=== PATIENT | male | born 1985 | race Caucasian/White ===

== ENCOUNTER 2020-07-10 08:38 | Outpatient (REF) | payer OTHER, SELFPAY ==
[2020-07-10 09:48] LABS: Hematocrit 45.7 % (42-52); Hemoglobin 14.7 g/dl (14.0-18.0); Mean Corpuscular HGB Conc 32.2 g/dl (31.0-36.0); Mean Corpuscular Hemoglobin 25.7 pg (27.0-33.0); Mean Platelet Volume 12.4 fL (9.4-12.4); Platelet Count 234 X10*3/uL (160-400); Red Blood Count 5.71 X10*6/uL (4.60-5.80); Red Cell Distribution Width 14.5 % (11.0-16.0); White Blood Count 5.7 X10*3/uL (4.8-10.8)
[2020-07-10 10:06] LABS: Estimated Average Glucose 103 mg/dL; Hemoglobin A1c % 5.2 %
[2020-07-10 10:10] LABS: Alanine Aminotransferase 21 U/L (0-40); Albumin Level 4.4 g/dL (3.5-5.0); Alkaline Phosphatase 53 U/L (39-117); Anion Gap 12 (12-20); Aspartate Amino Transferase 23 U/L (5-37); Bilirubin Total 0.7 mg/dL (0.0-1.0); Blood Urea Nitrogen 17 mg/dL (9-16); Carbon Dioxide 26 mmol/L (22-29); Chloride 107 mmol/L (96-108); Cholesterol 140 mg/dL; Estimated Glomerular Filt Rate > 60; Glucose Fasting 101 mg/dL (60-99); HDL Cholesterol 42 mg/dL; LDL Cholesterol Calculated 77 mg/dl; Sodium 140 mmol/L (135-145); Total Protein 7.4 g/dL (6.5-8.0); Triglycerides 109 mg/dL
[2020-07-10 10:32] LABS: TSH reflex Free T4 0.57 uIU/mL (0.32-4.0)
== END 2020-07-10 08:39 | disposition home or self-care (01) ==
LOC: HO.LAB 08:38
PROVIDERS: PCP Physician Assistant; Visit Provider Physician Assistant
DX: Z13.220 Encounter for screening for lipoid disorders (principal); Z13.29 Encounter for screening for other suspected endocrine disorder; I10 Essential (primary) hypertension
CPT/HCPCS: 36415; 80053; 80061; 83036; 84443; 85027

== ENCOUNTER → 2020-10-03 13:05 | Outpatient (BNVA) | payer OTHER, SELFPAY | PROVIDERS: PCP Physician Assistant; Referring Provider Physician Assistant; Visit Provider Internal Medicine | DX: R07.9 Chest pain, unspecified (principal); E66.9 Obesity, unspecified; G47.33 Obstructive sleep apnea (adult) (pediatric); Z68.42 Body mass index [BMI] 45.0-49.9, adult; Z87.891 Personal history of nicotine dependence; Z79.899 Other long term (current) drug therapy | CPT/HCPCS: 93005; 99202 ==

== ENCOUNTER → 2020-10-29 15:39 | Outpatient (BNVA) | payer OTHER, SELFPAY | PROVIDERS: PCP Physician Assistant; Visit Provider Internal Medicine | DX: G47.33 Obstructive sleep apnea (adult) (pediatric) (principal); E66.01 Morbid (severe) obesity due to excess calories | CPT/HCPCS: 99202 ==

== ENCOUNTER → 2020-11-14 08:13 | Outpatient (REF) | payer OTHER, SELFPAY ==
--- NOTE | 2020-11-14 08:16 | CA_ITS ---
Transthoracic Echocardiogram Patient (Last, First, Middle): Supa Bello L Gender: Male Date of : 1985 Age: 35 Procedure Date: 11/14/2020 Procedure Type: Transthoracic Echocardiogram Location: OP Height: 180.34 cm Weight: 145.15 kg BSA: 2.58 m2 Heart Rate: bpm BP: 102 / 40 mmHg Sagger Maker: Referring MD: Manav Bhakta MD Symptoms: R07.9 - Chest pain, unspecified Study Quality: Fair ECG Rhythm: Sinus Conclusions: - The left ventricular systolic function is normal. The visually estimated ejection fraction is between 60-65%. - No obvious valvular pathology seen on this study. Findings Left Ventricle Normal left ventricular cavity size. There is normal left ventricular wall thickness. The left ventricular systolic function is normal. The visually estimated ejection fraction is between 60-65%. There is no evidence of regional wall motion abnormalities. Diastolic function is normal for age. Right Ventricle Normal right ventricular cavity size and systolic function. Atria Both atria are normal in size. Aortic Valve There is a normal trileaflet aortic valve. There is no aortic valve stenosis. There is no aortic valve regurgitation. Mitral Valve The mitral valve appears normal. There is trace mitral valve regurgitation. There is no mitral valve stenosis. Pulmonic Valve The pulmonic valve was not well visualized. Tricuspid Valve Normal tricuspid valve structure. There is trace tricuspid valve regurgitation. The pulmonary artery systolic pressure is normal. Great Vessels The aortic annulus, sinuses of valsalva, asc aorta, and aortic arch are normal in size. Venous The inferior vena cava was not well visualized. The inferior vena cava is normal in size and collapses greater than 50% with inspiration. Pericardium/Pleural There is a trivial pericardial effusion. Prior Study Comparison No prior study available for comparison. Recommendations, Care & Conclusions No obvious valvular pathology seen on this study. Measurements 2D Linear Measurements RVIDd: 3.35 RVIDd Index: 1.30 IVSd: 0.96 0.6-0.9/0.6-1.0 cm LVIDd: 5.53 3.9-5.3/4.2-5.9 cm LVIDd Index: 2.14 2.4-3.2/2.2-3.1 cm/m2 LVIDs: 3.16 2.0-3.6 cm LVPWd: 1.23 0.7-1.1 cm Ao Root: 3.10 2.1-3.5 cm LA Diam: 4.10 2.7-3.8/3.0-4.0 cm LAIDs Index: 1.59 1.5-2.3 cm/m2 LV Mass: 302.63 67-162/88-224 g LV Mass Index: 117.30 43-95/49-115 g/m2 LVOT Diam: 2.40 3.0+(-)1.3 cm 2D Systolic Function EF 4C: 57.00 >55% EF 2C: 72.00 >55% Mitral Valve MV Pk E: 0.83 MV PK A: 0.50 MV Decel Time: 202.00 E/A: 1.70 E'Lateral: 9.90 E'Medial: 10.90 E/E' Med: 7.60 E/E' Lat: 8.40 Aortic Valve AoV Pk Shaquille: 1.16 AoV Mn Shaquille: 0.80 AoV VTI: 0.22 AoV Pk Grad: 5.00 Aov Mn Grad: 3.00 ALINE Cont.VTI: 4.21 LVOT LVOT Pk Shaquille: 1.07 LVOT Mn Shaquille: 0.77 LVOT VTI: 0.21 LVOT Pk Grad: 5.00 LVOT Mn Grad: 3.00 LVOT Diam: 2.40 LVOT Area: 4.52 Diastolic Function MV Pk E: 0.83 MV Pk A: 0.50 E/A: 1.70 E'Medial: 10.90 E/E' Med: 7.60 E' Laterial: 9.90 E/E' Lat: 8.40 Right Ventricle TAPSE (mm): 24.00 TVS' Shaquille: 9.00 Tricuspid Valve TR Pk Shaquille: 2.24 TR Pk Grad: 20.00 RA Press: 3.00 RVSP: 23.00 Great Vessels Aorta Ao Root-2D: 3.10 2.0-3.7 cm Ao Asc: 3.10 2.1-3.4 cm Ao Arch: 2.90 Updated in Other Vendor System with Status of Final Manav Bhakta MD electronically signed on 11/15/2020 11:36:05 AM with status of Final
== END ==
LOC: HO.CARD 08:13
PROVIDERS: PCP Internal Medicine; Visit Provider Internal Medicine
DX: R07.9 Chest pain, unspecified (principal); R00.2 Palpitations
CPT/HCPCS: 93306

== ENCOUNTER → 2020-11-21 12:53 | Outpatient (BNVA) | payer OTHER, SELFPAY | PROVIDERS: PCP Physician Assistant; Referring Provider Physician Assistant; Visit Provider Nurse Practitioner Family | DX: R00.2 Palpitations (principal); R07.89 Other chest pain; E66.01 Morbid (severe) obesity due to excess calories; Z68.41 Body mass index [BMI] 40.0-44.9, adult | CPT/HCPCS: 99212 ==

== ENCOUNTER → 2021-01-09 15:18 | Outpatient (BNVA) | payer OTHER, SELFPAY | PROVIDERS: PCP Physician Assistant; Referring Provider Physician Assistant; Visit Provider Nurse Practitioner Family ==

== ENCOUNTER 2021-04-09 12:07 | Outpatient (REF) | payer OTHER, SELFPAY ==
[2021-04-09 13:23] LABS: Binax Internal Control QC Valid; Binax Now Covid-19 Ag Positive (Negative)
== END 2021-04-09 12:08 | disposition home or self-care (01) ==
LOC: HO.LAB 12:07
PROVIDERS: Visit Provider Internal Medicine
DX: Z20.822 Contact with and (suspected) exposure to COVID-19 (principal)
CPT/HCPCS: C9803

== ENCOUNTER 2021-05-08 15:38 | Outpatient (REF) | payer OTHER, SELFPAY ==
--- NOTE | ~2021-05-08 | CT_ITS ---
EXAMINATION: CT HEAD WITHOUT CONTRAST CLINICAL INFORMATION: Migraine COMPARISON: None TECHNIQUE: Contiguous axial imaging was performed from the skull base to vertex without intravenous administration of contrast. This CT examination was performed using dose optimization techniques as appropriate, variously including the following: *Automated exposure control *Adjustment of mA and/or kV according to patient size (this includes techniques or standardized protocols for targeted exams where dose is matched to indication/reason for exam; i.e. extremities or head) *Use of iterative reconstruction technique DLP: 1661 mGy-cm FINDINGS: There is no evidence of acute intracranial hemorrhage or territorial infarction. No abnormal mass effect or midline shift is seen. Angelo to white matter differentiation is well preserved. No extra-axial fluid collections are identified. The ventricles are normal in size. There is no abnormal attenuation within the brain parenchyma. The osseous structures and soft tissues are normal. The mastoid air cells and visualized portions of the paranasal sinuses are well aerated. CT/CT head/brain wo con IMPRESSION: Unremarkable exam.
== END 2021-05-08 15:39 | disposition home or self-care (01) ==
LOC: HO.CT 15:38
PROVIDERS: PCP Physician Assistant; Visit Provider Physician Assistant
DX: G43.009 Migraine without aura, not intractable, without status migrainosus (principal)
CPT/HCPCS: 70450

== ENCOUNTER 2022-05-08 19:09 | Emergency (ER) | payer OTHER, SELFPAY ==
--- NOTE | ~2022-05-08 | CT_ITS ---
EXAMINATION: CT ABDOMEN AND PELVIS WITHOUT CONTRAST CLINICAL INFORMATION: Upper abdominal pain COMPARISON: Abdominal ultrasound 09/25/2016 TECHNIQUE: Multidetector volumetric imaging was performed from the superior aspect of the liver through the pubic symphysis. Sagittal and coronal reformatted images were obtained on the technologist's workstation. This CT examination was performed using dose optimization techniques as appropriate, variously including the following: *Automated exposure control *Adjustment of mA and/or kV according to patient size (this includes techniques or standardized protocols for targeted exams where dose is matched to indication/reason for exam; i.e. extremities or head) *Use of iterative reconstruction technique DLP: 1144 mGy-cm FINDINGS: LUNG BASES: Unremarkable. ABDOMINAL AND PELVIC WALL: Small fat-containing umbilical hernia. LIVER AND BILIARY TREE: Unremarkable. GALLBLADDER: Unremarkable. PANCREAS: Unremarkable. SPLEEN: Unremarkable. ADRENAL GLANDS: Unremarkable. KIDNEYS AND URETERS: Unremarkable. GASTROINTESTINAL TRACT: Few borderline dilated loops of fluid-filled small bowel in the central abdomen measuring up to 2.9 cm without walter transition point. No bowel wall thickening, or intramesenteric loop free fluid. Appendix is surgically absent. VASCULAR: Unremarkable. LYMPH NODES/PERITONEUM: No lymphadenopathy. FREE FLUID: None. BLADDER: Unremarkable. PELVIC VISCERA: Unremarkable. OSSEOUS STRUCTURES: Unremarkable. CT/CT abdomen pelvis wo IV con IMPRESSION: Few borderline dilated loops of fluid-filled small bowel in the central abdomen measuring up to 2.9 cm. Differential considerations could include a developing ileus or enteritis. There is no walter transition point to favor small bowel obstruction however a low-grade small bowel obstruction would be another consideration.
[2022-05-08 19:30] VITALS: BP 124/74; PULSE 86; RESP 20; TEMP 36.7; O2SAT 98; BMI 43.7
--- NOTE | 2022-05-08 19:39 | ED.ABDPAIN ---
HPI - Abdominal Pain General Chief Complaint: Abdominal Pain <NIA Kwok - Last Filed: 05/08/22 19:40> Stated Complaint: upper abd pain <NIA Kwok - Last Filed: 05/08/22 19:40> Time Seen by Provider: 05/08/22 23:57 <NIA Kwok - Last Filed: 05/08/22 19:40> Source: patient <Aneudy Sow MD - Last Filed: 05/09/22 00:36> Mode of arrival: ambulatory <Aneudy Sow MD - Last Filed: 05/09/22 00:36> Limitations: no limitations <Aneudy Sow MD - Last Filed: 05/09/22 00:36> History of Present Illness HPI narrative: Patient history of depression JACEY status post appendectomy comes in with diffuse abdominal discomfort with diarrhea had 3-4 bowel movements earlier today feels nauseated slightly bloated since 09:00 no vomiting no fever or chills pain comes and goes no history of bowel obstructions the past <Aneudy Sow MD - Last Filed: 05/09/22 00:36> Related Data Home Medications: Previous Rx's Medication Instructions Recorded omeprazole 20 mg capsule,delayed 20 mg PO DAILY 30 days #30 caps 08/14/20 release uinmyofjxd-sebouusqeyolh-wkrqswzr 1 tab PO Q6H PRN pain 2 days #8 01/09/21 50 mg-325 mg-40 mg tablet tabs dicyclomine 20 mg tablet 20 mg PO QID PRN abdominal pain 05/09/22 #20 tabs ondansetron 4 mg disintegrating 4 mg PO Q6-8H PRN nausea and 05/09/22 tablet vomiting #7 tabs <NIA Kwok - Last Filed: 05/08/22 19:40> Allergies/Adverse Reactions: Allergies Allergy/AdvReac Type Severity Reaction Status Date / Time No Known Allergies Allergy Verified 05/08/22 19:39 [No Known Allergies*] <NIA Kwok - Last Filed: 05/08/22 19:40> Review of Systems Review of Systems Yes all other systems are reviewed and are negative <Aneudy Sow MD - Last Filed: 05/09/22 00:36> [facility] Past Medical History Medical History: Medical History Morbid obesity <NIA Kwok - Last Filed: 05/08/22 19:40> Surgical History: Surgical History History of appendectomy History of right knee surgery <NIA Kwok - Last Filed: 05/08/22 19:40> Family History Family History: Family History Father Hypertension Mother COPD (chronic obstructive pulmonary disease) Hypertension Asthma Vertigo Brother In good health Sister In good health Son In good health Daughter In good health <NIA Kwok - Last Filed: 05/08/22 19:40> Social History Social History: Social History Housing: Apartment Alcohol intake: never Patient Tobacco Use Status: Former Tobacco user e-Cigarette/Vaping Use: Never Used Second Hand Smoke Exposure: Yes Advance Directives: No Advance Directives Information Provided: Yes service: No Current occupational status: employed Current occupation: [employer] <NIA Kwok - Last Filed: 05/08/22 19:40> Physical Exam ED Vital Signs: Vital Signs - 24 hr 05/08/22 19:30 05/08/22 22:22 05/08/22 23:03 Temperature 98.1 F 97.9 F Pulse Rate 86 79 86 Respiratory Rate 20 20 16 Blood Pressure 124/74 138/85 121/72 Pulse Oximetry 98 99 97 Oxygen Delivery Method Room Air Room Air Room Air 05/09/22 00:32 Temperature 98.1 F Pulse Rate 80 Respiratory Rate 16 Blood Pressure 113/72 Pulse Oximetry 98 Oxygen Delivery Method Room Air BMI result Body Mass Index 43.7 <NIA Kwok - Last Filed: 05/08/22 19:40> Vital Signs - 24 hr 05/08/22 19:30 05/08/22 22:22 05/08/22 23:03 Temperature 98.1 F 97.9 F Pulse Rate 86 79 86 Respiratory Rate 20 20 16 Blood Pressure 124/74 138/85 121/72 Pulse Oximetry 98 99 97 Oxygen Delivery Method Room Air Room Air Room Air 05/09/22 00:32 Temperature 98.1 F Pulse Rate 80 Respiratory Rate 16 Blood Pressure 113/72 Pulse Oximetry 98 Oxygen Delivery Method Room Air BMI result Body Mass Index 43.7 <Aneudy Sow MD - Last Filed: 05/09/22 00:36> Appearance: Alert. Oriented X3. No acute distress. Eyes: No pallor or icterus ENT: Pharynx normal. Oral Mucosa moist Neck: Normal inspection. Neck supple. CVS: Normal heart rate and rhythm. Pulses normal. Respiratory: No respiratory distress. Equal air entry bilateral, no wheezing/rales/rhonchi Abdomen: Soft diffuse abdominal discomfort, slightly bloated. Bowel sounds are present, no mass palpable, no CVA tenderness Skin: Skin warm and dry. Normal skin color. Normal skin turgor. Extremities: No lower extremity edema. No calf tenderness Neuro: Oriented X 3. No motor deficit. <Aneudy Sow MD - Last Filed: 05/09/22 00:36> Course Course Course Narrative: This is an RME: Additional HPI, ROS, PE not included below will be deferred to primary provider. 36-year-old male presents with upper abdominal pain since this morning, patient reports he had some episodes of loose stool, reports nausea however no vomiting. Pain is severe in nature, nonradiating. Patient reports he also has external hemorrhoids. Denies fevers, chills, chest pain, shortness of breath, sick contacts, headache, vision changes, dizziness. Physical exam with upper abdominal tenderness on exam. Normoactive bowel sounds. Plan at this time labs, urine, imaging. <NIA Kwok - Last Filed: 05/08/22 19:40> Medical Decision Making Medical Decision Making MDM Narrative: Patient is slightly dilated bowels but patient is moving his bowels multiple times bowel sounds are present no signs of obstruction clinically discharge patient home on Bentyl and Zofran for likely gastroenteritis <Aneudy Sow MD - Last Filed: 05/09/22 00:36> Differential Diagnosis Diverticulitis/cholecystitis/SBO <Aneudy Sow MD - Last Filed: 05/09/22 00:36> Lab Data [facility] Lab Attestation statement: I reviewed the patient's lab results. <Aneudy Sow MD - Last Filed: 05/09/22 00:36> Result Diagrams: 05/08/22 19:52 05/08/22 19:52 <NIA Kwok - Last Filed: 05/08/22 19:40> Labs: Lab Results 05/08/22 05/08/22 05/08/22 Range/Units 19:52 19:52 19:52 WBC 9.7 (4.8-10.8) X10*3/uL RBC 5.94 H (4.60-5.80) X10*6/uL Hgb 15.3 (14.0-18.0) g/dl Hct 46.4 (42.0-52.0) % MCV 78.1 L (80.0-98.0) fL MCH 25.8 L (27.0-33.0) pg MCHC 33.0 (31.0-36.0) g/dl RDW 14.2 (11.0-16.0) % Plt Count 227 (160-400) X10*3/uL MPV 12.0 (9.4-12.4) fL Immature Gran % (Auto) 0.2 (0.0-0.4) % Neut % (Auto) 82.3 H (45-73) % Lymph % (Auto) 8.3 L (20-40) % Rogers % (Auto) 8.3 (2-11) % Eos % (Auto) 0.5 (0-4) % Baso % (Auto) 0.4 (0-2) % Lymph # (Auto) 0.8 L (1.2-4.9) X10*3/uL Rogers # (Auto) 0.8 (0.1-1.2) X10*3/uL Eos # (Auto) 0.1 (0.0-0.4) X10*3/uL Baso # (Auto) 0.0 (0.0-0.2) X10*3/uL Abs Immat Gran (auto) 0.02 (0.00-0.03) X10*3/uL Absolute Neuts (auto) 8.0 (2.0-8.3) x10*3/uL Absolute Nucleated RBC 0.000 (0.0-0.012) X10*3/uL Nucleated RBC % (auto) 0.0 (0.0-0.2) /100WBC Sodium 143 (135-145) mmol/L Potassium 4.6 (3.3-5.1) mmol/L Chloride 108 (96-108) mmol/L Carbon Dioxide 25 (22-29) mmol/L Anion Gap 15 (12-20) BUN 17 H (9-16) mg/dL Creatinine 1.17 (0.5-1.4) mg/dL Estim Creat Clear Calc 126.1 Estimated GFR > 60 Random Glucose 94 (60-115) mg/dL Calcium 9.1 (8.4-10.2) mg/dL Magnesium 1.6 (1.6-2.6) mg/dL Total Bilirubin 1.1 H (0.0-1.0) mg/dL AST 26 (5-37) U/L ALT 19 (0-40) U/L Alkaline Phosphatase 65 (39-117) U/L Total Protein 7.2 (6.5-8.0) g/dL Albumin 4.4 (3.5-5.0) g/dL Lipase 14 (8-78) U/L Urine Color Urine Appearance Urine pH (5.0-9.0) Ur Specific White Bird (1.005-1.025) Urine Protein (Neg-Trace) mg/dL Urine Glucose (UA) (Negative) mg/dL Urine Ketones (Negative) mg/dL Urine Blood (Negative) Urine Nitrite (Negative) Ur Leukocyte Esterase (Negative) COVID-19 (NICK) (Negative) COVID-19 Clin Com Influenza Type A (MATTIE) Negative (Negative) Influenza Type B (MATTIE) Negative (Negative) Influenza A & B Note See Note 05/08/22 05/08/22 Range/Units 19:52 23:06 WBC (4.8-10.8) X10*3/uL RBC (4.60-5.80) X10*6/uL Hgb (14.0-18.0) g/dl Hct (42.0-52.0) % MCV (80.0-98.0) fL MCH (27.0-33.0) pg MCHC (31.0-36.0) g/dl RDW (11.0-16.0) % Plt Count (160-400) X10*3/uL MPV (9.4-12.4) fL Immature Gran % (Auto) (0.0-0.4) % Neut % (Auto) (45-73) % Lymph % (Auto) (20-40) % Rogers % (Auto) (2-11) % Eos % (Auto) (0-4) % Baso % (Auto) (0-2) % Lymph # (Auto) (1.2-4.9) X10*3/uL Rogers # (Auto) (0.1-1.2) X10*3/uL Eos # (Auto) (0.0-0.4) X10*3/uL Baso # (Auto) (0.0-0.2) X10*3/uL Abs Immat Gran (auto) (0.00-0.03) X10*3/uL Absolute Neuts (auto) (2.0-8.3) x10*3/uL Absolute Nucleated RBC (0.0-0.012) X10*3/uL Nucleated RBC % (auto) (0.0-0.2) /100WBC Sodium (135-145) mmol/L Potassium (3.3-5.1) mmol/L Chloride (96-108) mmol/L Carbon Dioxide (22-29) mmol/L Anion Gap (12-20) BUN (9-16) mg/dL Creatinine (0.5-1.4) mg/dL Estim Creat Clear Calc Estimated GFR Random Glucose (60-115) mg/dL Calcium (8.4-10.2) mg/dL Magnesium (1.6-2.6) mg/dL Total Bilirubin (0.0-1.0) mg/dL AST (5-37) U/L ALT (0-40) U/L Alkaline Phosphatase (39-117) U/L Total Protein (6.5-8.0) g/dL Albumin (3.5-5.0) g/dL Lipase (8-78) U/L Urine Color Yellow Urine Appearance Clear Urine pH 6.0 (5.0-9.0) Ur Specific White Bird 1.025 (1.005-1.025) Urine Protein Negative (Neg-Trace) mg/dL Urine Glucose (UA) Negative (Negative) mg/dL Urine Ketones Trace (Negative) mg/dL Urine Blood Negative (Negative) Urine Nitrite Negative (Negative) Ur Leukocyte Esterase Negative (Negative) COVID-19 (NICK) Negative (Negative) COVID-19 Clin Com See Note Influenza Type A (MATTIE) (Negative) Influenza Type B (MATTIE) (Negative) Influenza A & B Note <NIA Kwok - Last Filed: 05/08/22 19:40> Lab Results 05/08/22 05/08/22 05/08/22 Range/Units 19:52 19:52 19:52 WBC 9.7 (4.8-10.8) X10*3/uL RBC 5.94 H (4.60-5.80) X10*6/uL Hgb 15.3 (14.0-18.0) g/dl Hct 46.4 (42.0-52.0) % MCV 78.1 L (80.0-98.0) fL MCH 25.8 L (27.0-33.0) pg MCHC 33.0 (31.0-36.0) g/dl RDW 14.2 (11.0-16.0) % Plt Count 227 (160-400) X10*3/uL MPV 12.0 (9.4-12.4) fL Immature Gran % (Auto) 0.2 (0.0-0.4) % Neut % (Auto) 82.3 H (45-73) % Lymph % (Auto) 8.3 L (20-40) % Rogers % (Auto) 8.3 (2-11) % Eos % (Auto) 0.5 (0-4) % Baso % (Auto) 0.4 (0-2) % Lymph # (Auto) 0.8 L (1.2-4.9) X10*3/uL Rogers # (Auto) 0.8 (0.1-1.2) X10*3/uL Eos # (Auto) 0.1 (0.0-0.4) X10*3/uL Baso # (Auto) 0.0 (0.0-0.2) X10*3/uL Abs Immat Gran (auto) 0.02 (0.00-0.03) X10*3/uL Absolute Neuts (auto) 8.0 (2.0-8.3) x10*3/uL Absolute Nucleated RBC 0.000 (0.0-0.012) X10*3/uL Nucleated RBC % (auto) 0.0 (0.0-0.2) /100WBC Sodium 143 (135-145) mmol/L Potassium 4.6 (3.3-5.1) mmol/L Chloride 108 (96-108) mmol/L Carbon Dioxide 25 (22-29) mmol/L Anion Gap 15 (12-20) BUN 17 H (9-16) mg/dL Creatinine 1.17 (0.5-1.4) mg/dL Estim Creat Clear Calc 126.1 Estimated GFR > 60 Random Glucose 94 (60-115) mg/dL Calcium 9.1 (8.4-10.2) mg/dL Magnesium 1.6 (1.6-2.6) mg/dL Total Bilirubin 1.1 H (0.0-1.0) mg/dL AST 26 (5-37) U/L ALT 19 (0-40) U/L Alkaline Phosphatase 65 (39-117) U/L Total Protein 7.2 (6.5-8.0) g/dL Albumin 4.4 (3.5-5.0) g/dL Lipase 14 (8-78) U/L Urine Color Urine Appearance Urine pH (5.0-9.0) Ur Specific White Bird (1.005-1.025) Urine Protein (Neg-Trace) mg/dL Urine Glucose (UA) (Negative) mg/dL Urine Ketones (Negative) mg/dL Urine Blood (Negative) Urine Nitrite (Negative) Ur Leukocyte Esterase (Negative) COVID-19 (NICK) (Negative) COVID-19 Clin Com Influenza Type A (MATTIE) Negative (Negative) Influenza Type B (MATTIE) Negative (Negative) Influenza A & B Note See Note 05/08/22 05/08/22 Range/Units 19:52 23:06 WBC (4.8-10.8) X10*3/uL RBC (4.60-5.80) X10*6/uL Hgb (14.0-18.0) g/dl Hct (42.0-52.0) % MCV (80.0-98.0) fL MCH (27.0-33.0) pg MCHC (31.0-36.0) g/dl RDW (11.0-16.0) % Plt Count (160-400) X10*3/uL MPV (9.4-12.4) fL Immature Gran % (Auto) (0.0-0.4) % Neut % (Auto) (45-73) % Lymph % (Auto) (20-40) % Rogers % (Auto) (2-11) % Eos % (Auto) (0-4) % Baso % (Auto) (0-2) % Lymph # (Auto) (1.2-4.9) X10*3/uL Rogers # (Auto) (0.1-1.2) X10*3/uL Eos # (Auto) (0.0-0.4) X10*3/uL Baso # (Auto) (0.0-0.2) X10*3/uL Abs Immat Gran (auto) (0.00-0.03) X10*3/uL Absolute Neuts (auto) (2.0-8.3) x10*3/uL Absolute Nucleated RBC (0.0-0.012) X10*3/uL Nucleated RBC % (auto) (0.0-0.2) /100WBC Sodium (135-145) mmol/L Potassium (3.3-5.1) mmol/L Chloride (96-108) mmol/L Carbon Dioxide (22-29) mmol/L Anion Gap (12-20) BUN (9-16) mg/dL Creatinine (0.5-1.4) mg/dL Estim Creat Clear Calc Estimated GFR Random Glucose (60-115) mg/dL Calcium (8.4-10.2) mg/dL Magnesium (1.6-2.6) mg/dL Total Bilirubin (0.0-1.0) mg/dL AST (5-37) U/L ALT (0-40) U/L Alkaline Phosphatase (39-117) U/L Total Protein (6.5-8.0) g/dL Albumin (3.5-5.0) g/dL Lipase (8-78) U/L Urine Color Yellow Urine Appearance Clear Urine pH 6.0 (5.0-9.0) Ur Specific White Bird 1.025 (1.005-1.025) Urine Protein Negative (Neg-Trace) mg/dL Urine Glucose (UA) Negative (Negative) mg/dL Urine Ketones Trace (Negative) mg/dL Urine Blood Negative (Negative) Urine Nitrite Negative (Negative) Ur Leukocyte Esterase Negative (Negative) COVID-19 (NICK) Negative (Negative) COVID-19 Clin Com See Note Influenza Type A (MATTIE) (Negative) Influenza Type B (MATTIE) (Negative) Influenza A & B Note <Aneudy Sow MD - Last Filed: 05/09/22 00:36> Discharge Plan Discharge Clinical Impression: Gastroenteritis <NIA Kwok - Last Filed: 05/08/22 19:40> Patient Disposition: Home, Self-Care <NIA Kwok - Last Filed: 05/08/22 19:40> Instructions: Gastroenteritis (ED) <NIA Kwok - Last Filed: 05/08/22 19:40> Additional Instructions: Drink plenty of fluids, clear liquids advanced slowly to solids Med for nausea and abdominal discomfort as prescribed Report to ER if distention of the abdomen get worse/vomiting /high fever <NIA Kwok - Last Filed: 05/08/22 19:40> Prescriptions: New dicyclomine 20 mg tablet 20 mg PO QID PRN (Reason: abdominal pain) Qty: 20 0RF ondansetron 4 mg tablet,disintegrating 4 mg PO Q6-8H PRN (Reason: nausea and vomiting) Qty: 7 0RF No Action omeprazole 20 mg capsule,delayed release(DR/EC) 20 mg PO DAILY 30 Days Qty: 30 3RF cavvgcwoda-gsfqgzamgdzgo-qavi 50-325-40 mg tablet 1 tab PO Q6H PRN (Reason: pain) 2 Days Qty: 8 0RF <NIA Kwok - Last Filed: 05/08/22 19:40>
--- OUTSIDE RECORDS SUMMARY | 2022-05-08 19:56 | XMS_ITS | Continuity of Care Document ---
:1985 Author Organization [facility] Address [address] [place] [address]- Care Team Providers Name Role Phone Gallito Poon Primary Care Physician Encounter [facility] Date(s): 09/13/21 - 09/13/[address] [id number]- Encounter Diagnosis Precordial chest pain (Final) - 09/13/21 Precordial chest pain (Final) - 09/13/21 Discharge Disposition: A-D/C Home Attending Physician: Angely Farmer DO Admitting Physician: Angely Farmer DO Referring Physician: Not on Staff, Referring MD Allergies, Adverse Reactions, Alerts No Known Medication Allergies Medications ranitidine 150 mg oral capsule 1 capsule = 150 mg, By Mouth, 2 times a day, # 28 capsule, 0 Refills, Maintenance, 11/05/17 23:10:45EDT, Capsule Start Date: 11/05/17 Stop Date: 11/19/17 Status: Ordered Results Radiology Reports Exam Date Time Procedure Performing Provider Status 09/13/21 6:41 PM Chest 2 Views Frontal and Lat Edison Hatfield (Verified) Notes:(Chest 2 Views Frontal and Lat) Reason For Exam: AnginaRESULT: Chest 2 Views Frontal and Lat Chest 2 Views Frontal and Lat Reason: Angina; Clinical Question(s): CHF COMPARISON: None. FINDINGS: LINES AND TUBES: None. LUNGS AND PLEURA: Clear lungs. Normal pulmonary vascularity. No pleural effusion. No pneumothorax. HEART, MEDIASTINUM AND LORRI: Heart is normal in size. Normal upper mediastinal and hilar contour. BONES AND SOFT TISSUES: No acute abnormality. IMPRESSION: No acute abnormality. WSN: [id number] Ordering Physician: Angely Farmer Dictated By: Julio Pavon MD Dictated Date/Time: 09/13/21 6:41 pm Reviewed By: Julio Pavon MD Signed By: Julio Pavno MD Signed Date/Time: 09/13/21 6:41 pm Transcribed By: RAFAEL Transcribed Date/Time: 09/13/21 6:41 pm Vital Signs Most recent to oldest 1 2 3 [Reference Range]: Oxygen Saturation [94-100 %] 100 % 99 % 99 % (09/13/21 11:04 PM) (09/13/21 9:18 PM) (09/13/21 6: 26 PM) Pulse Rate [55-90 bpm] 67 bpm 64 bpm 78 bpm (09/13/21 11:04 PM) (09/13/21 9:18 PM) (09/13/21 6: 26 PM) Blood Pressure [90-138/55-84 111/65 mm Hg 111/62 mm Hg 112 /65 mm Hg mm Hg] (09/13/21 11:04 PM) (09/13/21 9:18 PM) (09/13/21 6: 26 PM) Respiratory Rate [16-30 16 br/min 18 br/min 18 br/mi n br/min] (09/13/21 11:04 PM) (09/13/21 9:18 PM) (09/13/21 6: 26 PM) Temperature [96.8-100.4 DegF] 97.8 DegF 97.5 DegF 97 .9 DegF (09/13/21 11:04 PM) (09/13/21 9:18 PM) (09/13/21 6: 26 PM) Mode of Delivery (Oxygen) Room air Room air (09/13/21 9:18 PM) (09/13/21 6:26 PM) Blood pressure sites Arm, right (09/13/21 6:26 PM) Temperature Route Oral Oral (09/13/21 9:18 PM) (09/13/21 6:26 PM)
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
[2022-05-08 20:00] LABS: MANUAL DIFF FLAG NO
[2022-05-08 20:01] LABS: Basophils Percent Auto 0.4 % (0-2); Eosinophils Absolute Auto 0.1 X10*3/uL (0.0-0.4); Eosinophils Percent Auto 0.5 % (0-4); Hematocrit 46.4 % (42.0-52.0); Hemoglobin 15.3 g/dl (14.0-18.0); Imm Gran Abs Auto 0.02 X10*3/uL (0.00-0.03); Imm Gran Pct Auto 0.2 % (0.0-0.4); Lymphocytes Absolute Auto 0.8 X10*3/uL (1.2-4.9); Lymphocytes Percent Auto 8.3 % (20-40); Mean Corpuscular Hemoglobin 25.8 pg (27.0-33.0); Mean Corpuscular Volume 78.1 fL (80.0-98.0); Monocytes Absolute Auto 0.8 X10*3/uL (0.1-1.2); Monocytes Percent Auto 8.3 % (2-11); Neutrophils Percent Auto 82.3 % (45-73); Platelet Count 227 X10*3/uL (160-400); Red Blood Count 5.94 X10*6/uL (4.60-5.80); Red Cell Distribution Width 14.2 % (11.0-16.0); White Blood Count 9.7 X10*3/uL (4.8-10.8)
[2022-05-08 20:17] LABS: COVID-19 Test Negative (Negative); IDNOW Serial# 16C4AD1C; IDNOW Serial# BCCEAD1C; Influenza A Negative (Negative); Influenza B2 Negative (Negative)
[2022-05-08 20:40] LABS: Alanine Aminotransferase 19 U/L (0-40); Albumin Level 4.4 g/dL (3.5-5.0); Alkaline Phosphatase 65 U/L (39-117); Anion Gap 15 (12-20); Aspartate Amino Transferase 26 U/L (5-37); Bilirubin Total 1.1 mg/dL (0.0-1.0); Blood Urea Nitrogen 17 mg/dL (9-16); Calcium 9.1 mg/dL (8.4-10.2); Carbon Dioxide 25 mmol/L (22-29); Chloride 108 mmol/L (96-108); Creatinine Clr Calc Pharmacy 126.1; Estimated Glomerular Filt Rate > 60; Glucose Random 94 mg/dL (60-115); Lipase 14 U/L (8-78); Magnesium 1.6 mg/dL (1.6-2.6); Potassium 4.6 mmol/L (3.3-5.1); Sodium 143 mmol/L (135-145); Total Protein 7.2 g/dL (6.5-8.0)
[2022-05-08 22:22] VITALS: BP 138/85; PULSE 79; RESP 20; O2SAT 99
[2022-05-08 23:03] VITALS: BP 121/72; PULSE 86; RESP 16; TEMP 36.6; O2SAT 97
--- NOTE | 2022-05-08 23:04 | MHC.EDTECH ---
this pct assumed care of pt at 2300 ,vitals sign taken and urine sample sent to lab .
[2022-05-08 23:12] LABS: Appearance Urine Clear; Color Urine Yellow; Glucose Urine UA Negative (Negative); Leukocyte Esterase Urine Negative (Negative); Nitrite Urine Negative (Negative); Specific Gravity - Urine 1.025 (1.005-1.025); Urine Blood Negative (Negative); Urine Ketones Trace mg/dL (Negative); Urine Protein Negative (Neg-Trace)
[2022-05-09 00:32] VITALS: BP 113/72; PULSE 80; RESP 16; TEMP 36.7; O2SAT 98
--- NOTE | 2022-05-09 00:38 | MHC.EDTECH ---
patient was given po challenge and tolerated well ,rn aware .
[2022-05-09] MEDS: Dicyclomine HCl 10 MG CAPSULE 20 MG PO (00:41)
[2022-05-09] MEDS: Ondansetron ODT 4 MG TAB.RAPDIS TRANSLINGU (00:41)
== END 2022-05-09 00:46 | disposition home or self-care (01) ==
PROVIDERS: Physician Assistant; Emergency Provider Internal Medicine; PCP Physician Assistant
DX: K52.9 Noninfective gastroenteritis and colitis, unspecified (principal); Z20.822 Contact with and (suspected) exposure to COVID-19
CPT/HCPCS: 74176; 80053; 81003; 83690; 83735; 85025; 87502; 87635; 99283; 99284

== ENCOUNTER 2022-10-27 14:28 | Outpatient (REF) | payer OTHER, SELFPAY ==
[2022-10-29 18:37] LABS: H Pylori Breath Test Positive (Negative)
== END 2022-10-27 14:29 | disposition home or self-care (01) ==
LOC: HO.LNP 14:28
PROVIDERS: PCP Physician Assistant; Visit Provider Nurse Practitioner Family
DX: R13.13 Dysphagia, pharyngeal phase (principal); K21.9 Gastro-esophageal reflux disease without esophagitis
CPT/HCPCS: 83013; 99202

== ENCOUNTER 2022-10-27 14:28 | Outpatient (AMB) | payer OTHER, SELFPAY ==
[2022-10-27 14:34] VITALS: BP 118/58; BMI 44.9
--- NOTE | 2022-10-27 14:34 | A.OFFVIS_ITS ---
Intake Vital Signs 10/27/22 14:34 Height 5 ft 11 in Weight 321 lb 13.998 oz BMI 44.9 BP 118/58 L Blood Pressure Location Lt brachial Position Sitting Intake Visit Reasons: Dysphagia Intake Note: Supa presents in office as a new.patient for Dysphagia PT CC: pt reports having trouble swallowing foods pt denies any other GI Issues Sample Stitcher Required: No Accompanied by: Spouse Allergies No Known Allergies [No Known Allergies*] Allergy (Verified 10/27/22 14:35) HPI Dysphagia HPI Details 37-year old male with past medical history schizoaffective disorder MDD, morbid obesity, JACEY is here today for initial consultation. Patient repo rts that for the last couple years he has been dealing with symptoms acid reflux and lately trouble swallowing. Patient states that he has trouble swallowing liquids and solids. Patient denies any nausea or vomiting. Reports occasional epigastric discomfort with dyspepsia without dysphagia or odynophagia. Patient denies any melena, hematochezia, unintentional weight loss or ribbon like stools. Patient denies any nausea or vomiting. [facility] Medical History Morbid obesity Surgical History History of appendectomy History of right knee surgery Family History Father Hypertension Mother COPD (chronic obstructive pulmonary disease) Hypertension Asthma Vertigo Brother In good health Sister In good health Son In good health Daughter In good health Social History Housing: Apartment Alcohol intake: never Patient Tobacco Use Status: Former Tobacco user Quit Date: 2011 e-Cigarette/Vaping Use: Never Used Second Hand Smoke Exposure: Yes service: No Current occupational status: employed Current occupation: [employer] Cognitive needs: No Hearing needs: No Vision needs: No Review of Systems Const Denies weight gain and Denies weight loss ENT Reports no additional complaints, Reports dysphagia and Denies odynophagia Card Reports no additional complaints Resp Reports no additional complaints GI Denies abdominal pain, Denies belching, Denies melena, Denies bloating, Denies change in bowel habits, Reports dysphagia, Denies excessive flatus, Denies dyspepsia, Reports heartburn, Denies diarrhea, Denies loose stools, Denies nausea, Denies odynophagia and Denies vomiting Reports no additional complaints Musc Reports no additional complaints Neuro Reports no additional complaints Psych Reports no additional complaints Endo Reports no additional complaints Physical Exam Vital Signs: Last Vital Signs BP 118/58 L 10/27/22 14:34 BMI result Body Mass Index 44.9 Const General: healthy appearing, no acute distress and well developed Nutritional Appearance: obese Orientation/consciousness: patient oriented x3 HEENT Head: Yes normal to inspection, Yes normocephalic and Yes atraumatic Face and sinus: Yes normal facial exam Mouth: Normal oral and palatal mucosa present Throat: Yes posterior oropharynx normal, Yes tonsils normal and Yes uvula midline Eyes General: appearance normal, both eyes and all related structures Neck Neck: Yes normal visual inspection, Yes full ROM and Yes trachea midline Thyroid: Thyroid normal Resp Effort & Inspection: normal respiratory effort, able to speak in complete senten derek, no tracheal deviation and symmetric chest movement Auscultation: clear to auscultation bilaterally Cardio Rate: regular rate Heart sounds: S1 normal heart sound present and S2 normal heart sound present GI Inspection: Yes normal to inspection, No distended and Yes obesity Palpation (GI): Soft to palpation, not firm, nontender and No hepatosplenomegaly present Auscultation: normal bowel sounds General: Yes no CVA tenderness Back/Spine/Pelvis Back: no CVA tenderness Skin General skin exam: elasticity normal, turgor normal and dry skin Neuro General: patient oriented x3 Psych Appearance: grossly normal Mental Status: mental status grossly normal Speech and movement: Normal speech and movement present Affect: normal affect Assessment & Plan Assessment & Plan (1) Dysphagia: Code(s): R13.10 - Dysphagia, unspecified Qualifiers: Dysphagia type: pharyngeal phase Qualified Code(s): R13.13 - Dysphagia, pharyngeal phase Plan: Will do H pylori testing and treat empirically positive. Will check transglutaminase to rule out celiac disease. Will start patient on pantoprazole. Patient was previously on omeprazole and has not been helpful. (2) GERD (gastroesophageal reflux disease): Code(s): K21.9 - Gastro-esophageal reflux disease without esophagitis Qualifiers: Esophagitis presence: without esophagitis Qualified Code(s): K21.9 - Gastro-esophageal reflux disease without esophagitis Plan: Start pantoprazole daily. H pylori breath test in the office today. Treatment if positive. Will send patient for upper endoscopy to rule out gastritis, esophagitis, duodenitis, H pylori, celiac, Petersen's. I will see him after the procedure, sooner on as needed basis. Patient is agreeable to this plan and verbalizes understanding of instructions. He was given the opportunity to ask questions and all questions answered. Thank you for allowing me to participate in his care Orders: Orders Transglutaminase IgA 10/27/22 R10.9 - Unspecified abdominal pain Transglutaminase Ab IgG 10/27/22 R10.9 - Unspecified abdominal pain H Pylori Breath Test 10/28/22 Medications: New pantoprazole take one tablet half an hour before breakfast 40 mg PO DAILY 30 tabs 2RF K21.9 - Gastro-esophageal reflux disease without esophagitis Discontinued dicyclomine Discontinued Reason: Patient Completed Course 20 mg PO QID PRN 20 tabs 0RF abdominal pain omeprazole Discontinued Reason: Doctor's Order 20 mg PO DAILY 30 days 30 caps 3RF K21 .9 - Gastro-esophageal reflux disease without esophagitis Coding Level of Care Code New Pt Level 4 (70825) Diagnoses Dysphagia R13.13 Dysphagia type: pharyngeal phase GERD (gastroesophageal reflux disease) K21.9 Esophagitis presence: without esophagitis Time Spent (min) 45 Comment 30 minutes spent with patient additional 15 minutes spent reviewing his records
== END 2022-10-27 15:45 | disposition home or self-care (01) ==
PROVIDERS: PCP Physician Assistant; Visit Provider Nurse Practitioner Family
DX: R13.13 Dysphagia, pharyngeal phase (principal); K21.9 Gastro-esophageal reflux disease without esophagitis
CPT/HCPCS: 99204

== ENCOUNTER 2023-04-29 09:08 | Outpatient (AMB) | payer OTHER, SELFPAY ==
[2023-04-29 09:27] VITALS: BP 118/72; PULSE 78; O2SAT 98; BMI 42.6
--- NOTE | 2023-04-29 09:27 | MHC.PC.OV ---
Vital Signs 04/29/23 09:27 Height 5 ft 11 in Weight 305 lb 8 oz BMI 42.6 BP 118/72 Blood Pressure Location Rt brachial Position Sitting Pulse 78 Pulse Source Pulse Oximeter Pulse Oximetry (%) 98 Oxygen Delivery Method Room Air Intake Visit Reasons: F/U Intake Note: The patient is here for a follow-up appointment after orthopedic surgery with Dr. Camacho. Pt have been experiencing fatigue and dizziness recently. Crane Ladle Person Required: No Accompanied by: Self / Same As Patient Allergies No Known Allergies [No Known Allergies*] Allergy (Verified 04/29/23 10:00) Medication List - Last Reconciled 04/29/23 by Gallito Davis PA-C bismuth subsalicylate 2 tabs PO QID 14 days qnnszjtoeo-ljkxcfxeglhqx-twva 50-325-40 mg 1 tab PO Q6H PRN 2 days diclofenac sodium 50 mg PO DAILY 14 days metronidazole 1,000 mg (2 x 500 mg) PO BID olanzapine 5 - 10 mg PO BEDTIME ondansetron 4 mg PO Q6-8H PRN 7 days pantoprazole 40 mg PO DAILY propranolol 20 - 40 mg PO DAILY PRN tetracycline 1,000 mg (2 x 500 mg) PO Q12H triamcinolone acetonide 0.5% 1 appl topical DAILY 15 days Tobacco use date assessed: 04/29/23 Dental Screening Dental Screen Date: 04/29/23 Did you have a dental visit in the last 12 months?: Yes Did you have a dental problem in the last 6 months where you did not have access to dental care?: No Was dental information given to patient?: Patient has dentist HPI F/U HPI Details Patient is a 37-year-old here today for a follow-up visit. Recently underwent a left biceps tendon repair at [facility] then went fairly well. Still has pins and needles over his face. Unclear if this is a side effect of anesthesia or his anxiety. He has been taking only Tylenol for his pain relief as he reports having high pain tolerance. Also report since surgery having right lateral thigh numbness. He does have history of lumbar spine issues thus will send for x-ray of his lumbar spine. He is awaiting therapy for his left arm. He has upcoming appointment with his orthopedic surgeon. We have filled out [employer] paperwork for his job. He is awaiting [employer] paperwork for his so that she can take time off to help him with his activities of daily living. [facility] Medical History (Updated 04/29/23 @ 10:08 by Gallito Davis PA-C) Schizoaffective disorder PTSD (post-traumatic stress disorder) JACEY (obstructive sleep apnea) MDD (major depressive disorder) SALINAS (generalized anxiety disorder) GERD (gastroesophageal reflux disease) Morbid obesity Surgical History (Updated 04/29/23 @ 10:11 by Gallito Davis PA-C) History of right knee surgery History of appendectomy Family History Father Hypertension Mother COPD (chronic obstructive pulmonary disease) Hypertension Asthma Vertigo Brother In good health Sister In good health Son In good health Daughter In good health Social History Housing: Apartment Alcohol intake: never Patient Tobacco Use Status: Former Tobacco user Quit Date: 2011 e-Cigarette/Vaping Use: Never Used Second Hand Smoke Exposure: Yes service: No Current occupational status: employed Current occupation: [employer] Cognitive needs: No Hearing needs: No Vision needs: No Questionnaire PHQ-9 Over the last 2 weeks, how often have you been bothered by any of the following problems? 1. Little interest or pleasure in doing things: more than half the days 2. Feeling down, depressed, or hopeless: nearly every day 3. Trouble falling or staying asleep, or sleeping too much: nearly every day 4. Feeling tired or having little energy: nearly every day 5. Poor appetite or overeating: more than half the days 6. Feeling bad about yourself - or that you are a failure or have let yourself or your family down: several days 7. Trouble concentrating on things, such as reading the newspaper or watching television: more than half the days 8. Moving or speaking so slowly that other people could have noticed. Or the opposite - being so fidgety or restless that you have been moving around a lot more than usual: several days 9. Thoughts that you would be better off or of hurting yourself in some way: several days Total score: 18 [id number] - PHQ-9 Billing: Yes Source: Developed by Drs. Eduard L. Charlie, Samy Chávez and colleagues, with an educational jac from [employer]. Thrive Questionnaire Date Thrive assessed: 04/29/23 I am a: Patient What is your living situation today?: I have a steady place to live Within the past 12 months, did the food you bought not last and you didn't have the money to get more?: Never true Within the past 12 months, did you worry whether your food would run out before you got money to buy more?: Never true Do you have trouble paying for medicines?: No Do you have trouble getting transportation to medical appointments?: No Do you have trouble paying your heating and electricity bill?: No Do you have trouble taking care of your child, family member or friend?: No Do you have trouble with day-to-day activities such as bathing, preparing meals, shopping, managing finances, etc.?: No Are you currently unemployed and looking for a job?: No Are you interested in more education?: No Please select the resources that you would like help with: None Currently or been in a relationship where the following occur: no concerns reported THRIVE Score: 0 AUDIT C Alcohol Use Questionnaire (AUDIT-C) 1. How often do you have a drink containing alcohol?: Never 3. How often do you have six or more drinks on one occasion?: Never Total Score: 0 SALINAS-7 AMB Questionnaire SALINAS-7 Date SALINAS - 7 assessed: 04/29/23 Feeling nervous, anxious, or on edge: 3 = Nearly every day Not being able to stop or control worryin = Nearly every day Worrying too much about different things: 3 = Nearly every day Trouble relaxin = Nearly every day Being so restless that it is hard to sit still: 2 = More than half the days Becoming easily annoyed or irritable: 3 = Nearly every day Feeling afraid as if something awful might happen: 3 = Nearly every day Total SALINAS-7 score (0-4 normal; 5-9 mild; 10-14 moderate; 15-21 severe): 20 Source: Developed by Drs. Eduard Guerra, Samy Chávez and colleagues, with an educational jac from [employer]. SALINAS-7 Assessment Billing SALINAS-7 Assessment Tool: SALINAS-7 Assessment 42637 Review of Systems Const Denies headache(s) Eyes Denies loss of vision ENT Denies vertigo, Denies dizziness, Denies headache(s) and Denies sore throat Card Denies chest pain, Denies leg edema and Denies lightheadedness Resp Denies cough, Denies hemoptysis and Denies wheezing GI Denies abdominal pain, Denies melena, Denies constipation, Denies diarrhea and Denies vomiting Denies dysuria, Denies urinary frequency and Denies urinary urgency Musc Denies arthralgias, Denies joint swelling, Denies numbness and Denies tingling Neuro Denies Abnormal speech present, Denies behavioral changes, Denies vertigo, Denies dizziness, Denies headache(s), Denies loss of vision, Denies memory loss, Denies numbness and Denies tingling Psych Denies anxiety, Denies behavioral changes, Denies depression, Denies memory loss and Denies panic attacks Brent/Lymph Denies easy bleeding and Denies easy bruising Aller/Immun Denies wheezing Physical exam (Primary Care) Vital Signs: Last Vital Signs Pulse 78 04/29/23 09:27 BP 118/72 04/29/23 09:27 Pulse Ox 98 04/29/23 09:27 Oxygen Delivery Method Room Air 04/29/23 09:27 BMI result Body Mass Index 42.6 BMI Assessment/Plan discussion: High Tobacco/Smoking Status: Tobacco use Status Tobacco use date assessed 04/29/23 04/29/23 09:38 Patient Tobacco Use Status Former Tobacco user 04/29/23 09:29 e-Cigarette/Vaping Use Never Used 04/29/23 09:29 PHQ-9: PHQ-9 Score PHQ-9: Total score 18 04/29/23 10:09 Thrive Assessment: Date of Thrive Assessment Date Thrive assessed 04/29/23 04/29/23 09:36 Currently or been in a relationship where the following occur: no concerns reported Const General: healthy appearing, no acute distress, alert and awake Nutritional Appearance: well nourished Orientation/consciousness: oriented to person, oriented to place and oriented to time HENMT Ears: TM's normal bilaterally General nose exam: Normal nasal mucous membranes and turbinates present Eyes Conjunctivae: conjunctivae normal Sclerae: sclerae normal Pupils: Equal, round and reactive pupils present Neck Neck: Yes no lymphadenopathy and Yes no JVD Thyroid: Thyroid normal Carotids: no bruits Resp Effort & Inspection: normal respiratory effort and not tachypneic Auscultation: no crackles, no rales, no rhonchi and no wheezes Cardio Rate: regular rate Rhythm: regular rhythm Heart sounds: no murmurs and normal S1 and S2 GI Palpation (GI): Soft to palpation, nontender, no hepatomegaly and no splenomegaly Auscultation: normal bowel sounds Skin General skin exam: no rashes or lesions noted and dry skin Neuro General: oriented to person, oriented to place and oriented to time Cranial nerves: Yes Equal, round and reactive pupils present Speech: No Abnormal speech present Gait exam (Neuro): Normal gait present Motor exam (neuro): no tremor noted Extrem Other: LEFT UPPER EXTREMITY IN SLING. Right upper extremity: full ROM Right lower extremity: full ROM; no edema Left lower extremity: full ROM; no edema Psych Mental Status: mental status grossly normal Speech and movement: Normal speech and movement present Affect: normal affect Attitude: cooperative Thought process: Normal thought process present Assessment and Plan Assessment & Plan (1) Tear of left biceps muscle: Code(s): S46.212A - Strain of muscle, fascia and tendon of other parts of biceps, left arm, initial encounter Qualifiers: Encounter type: initial encounter Qualified Code(s): S46.212A - Strain of muscle, fascia and tendon of other parts of biceps, left arm, initial encounter Plan: IS STATUS POST BICEPS TENDON TEAR REPAIR. HAS UPCOMING APPOINTMENT WITH ORTHOPEDICS. Of note has odd neurological symptoms since surgery including numbness and tingling in face and right lateral thigh numbness.? Side effect of anesthesia Will get some baseline testing including B12, magnesium (2) Lumbar disc disease with radiculopathy: Code(s): M51.16 - Intervertebral disc disorders with radiculopathy, lumbar region Plan: Since surgery he has been noting right lower extremity numbness and tingling over his thigh. He does have lower lumbar spine (3) Right leg numbness: Code(s): R20.0 - Anesthesia of skin Plan: As above signs symptoms concerning for disc herniation and lumbar spine. Orders: Orders Vitamin B12 and Folate Today E53.8 - Deficiency of other specified B group vitamins, R20.0 - Anesthesia of skin, Z98.890 - Other specified postprocedural states XR lumbar spine 2-3V Today M51.16 - Intervertebral disc disorders with radiculopathy, lumbar region CT NG by PCR Today M51.16 - Intervertebral disc disorders with radiculopathy, lumbar region, Z20.2 - Contact with and (suspected) exposure to infections with a predominantly sexual mode of transmission Basic Metabolic Panel Today R20.0 - Anesthesia of skin, Z98.890 - Other specified postprocedural states Complete Blood Count no Diff Today R20.0 - Anesthesia of skin, Z98.890 - Other specified postprocedural states Magnesium Today R20.0 - Anesthesia of skin, Z98.890 - Other specified postprocedural states Syphilis Screen Today M51.16 - Intervertebral disc disorders with radiculopathy, lumbar region, Z11.3 - Encounter for screening for infections with a predominantly sexual mode of transmission HIV Ab/Ag Today M51.16 - Intervertebral disc disorders with radiculopathy, lumbar region, Z11.3 - Encounter for screening for infections with a predominantly sexual mode of transmission Coding Level of Care Code Est Pt Level 4 (80994) Diagnoses Tear of left biceps muscle, initial encounter S46.212A Encounter type: initial encounter Lumbar disc disease with radiculopathy M51.16 Right leg numbness R20.0 Additional Codes SALINAS-7 Assessment Billing - SALINAS-7 Assessment Tool: SALINAS-7 Assessment [id number] ([id number])
== END 2023-04-29 10:33 | disposition home or self-care (01) ==
PROVIDERS: PCP Physician Assistant; Visit Provider Physician Assistant
DX: S46.212A Strain of muscle, fascia and tendon of other parts of biceps, left arm, initial encounter (principal); M51.16 Intervertebral disc disorders with radiculopathy, lumbar region; R20.0 Anesthesia of skin
CPT/HCPCS: 99214

== ENCOUNTER 2023-05-05 14:02 | Outpatient (REF) | payer OTHER, SELFPAY ==
--- NOTE | ~2023-05-05 | XR_ITS ---
EXAMINATION: XR LUMBOSACRAL SPINE CLINICAL INFORMATION: Intervertebral discs disorders with radiculopathy. COMPARISON: None available. TECHNIQUE: AP and lateral views of the lumbar spine and lateral view of the lumbosacral junction. FINDINGS: Vertebral body heights are normal. There is a slight lumbar levoscoliosis. There is a transitional lumbar vertebra, which is designated L6. The lumbar disc spaces are well-maintained. The remaining disc spaces are well-maintained. No acute fracture or spondylolysis. There is mild anterior spondylosis at L4-L5. The posterior elements are intact. The paravertebral soft tissues are unremarkable. XR/XR lumbar spine 2-3V IMPRESSION: 1. There is mild degenerative disc disease at L4-L5. 2. The lumbar disc spaces are well-maintained. 3. No acute fracture or spondylolisthesis. 4. Transitional lumbar anatomy is noted. 5. There is a slight lumbar levoscoliosis.
[2023-05-05 15:26] LABS: Hematocrit 45.1 % (42.0-52.0); Hemoglobin 14.7 g/dl (14.0-18.0); Mean Corpuscular HGB Conc 32.6 g/dl (31.0-36.0); Mean Corpuscular Hemoglobin 25.6 pg (27.0-33.0); Mean Corpuscular Volume 78.6 fL (80.0-98.0); Mean Platelet Volume 12.5 fL (9.4-12.4); Platelet Count 259 X10*3/uL (160-400); Red Blood Count 5.74 X10*6/uL (4.60-5.80); Red Cell Distribution Width 14.4 % (11.0-16.0); White Blood Count 7.1 X10*3/uL (4.8-10.8)
[2023-05-05 15:58] LABS: Anion Gap 11 (12-20); Blood Urea Nitrogen 13 mg/dL (9-16); Calcium 9.5 mg/dL (8.4-10.2); Carbon Dioxide 28 mmol/L (22-29); Chloride 108 mmol/L (96-108); Estimated Glomerular Filt Rate > 60; Glucose Random 73 mg/dL (60-115); Magnesium 1.9 mg/dL (1.6-2.6); Potassium 4.1 mmol/L (3.3-5.1); Sodium 143 mmol/L (135-145)
[2023-05-05 16:32] LABS: Vitamin B12 379 pg/mL (200-900)
[2023-05-05 17:27] LABS: CT PCR NOT DETECTED (Not Detect.); NG PCR NOT DETECTED (Not Detect.)
[2023-05-06 05:01] LABS: Syphilis Screen Nonreactive (Nonreactive)
[2023-05-06 07:40] LABS: HIV AB/AG Nonreactive (Nonreactive); HIV Num 1 0.06 S/CO (0.00-0.99)
== END 2023-05-05 14:03 | disposition home or self-care (01) ==
LOC: HO.LAB 14:02
PROVIDERS: PCP Physician Assistant; Visit Provider Physician Assistant
DX: R20.0 Anesthesia of skin (principal); M51.16 Intervertebral disc disorders with radiculopathy, lumbar region; E53.8 Deficiency of other specified B group vitamins; Z11.3 Encounter for screening for infections with a predominantly sexual mode of transmission; Z20.2 Contact with and (suspected) exposure to infections with a predominantly sexual mode of transmission; Z98.890 Other specified postprocedural states
CPT/HCPCS: 0353U; 72100; 80048; 82607; 82746; 83735; 85027; 86780; 87389

== ENCOUNTER 2023-12-07 15:33 | Outpatient (AMB) | payer OTHER, SELFPAY ==
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
--- NOTE | 2023-12-07 15:36 | A.OFFPC_ITS ---
Intake Visit Reasons: [facility] F/U for back pain/PT order Armhole Raiser Lockstitch Required: No Allergies No Known Allergies [No Known Allergies*] Allergy (Verified 12/07/23 15:42) Medication List - Last Reconciled 12/07/23 by Gallito Davis PA-C bismuth subsalicylate 2 tabs PO QID 14 days kxqevrkgmf-rxkrscglodxta-rjza 50-325-40 mg 1 tab PO Q6H PRN 2 days diclofenac sodium 50 mg PO DAILY 14 days metronidazole 1,000 mg (2 x 500 mg) PO BID olanzapine 5 - 10 mg PO BEDTIME ondansetron 4 mg PO Q6-8H PRN 7 days pantoprazole 40 mg PO DAILY propranolol 20 - 40 mg PO DAILY PRN tetracycline 1,000 mg (2 x 500 mg) PO Q12H triamcinolone acetonide 0.5% 1 appl topical DAILY 15 days Tobacco use date assessed: 04/29/23 Dental Screening Dental Screen Date: 04/29/23 HPI [facility] F/U for back pain/PT order HPI Details Patient is a 38-year-old male being evaluated today via telephone only. Patient was seen at [facility] for acute lower back pain with increase pain numbness in his right foot and buttocks. He has had these symptoms in the past before though to this extent. He is concerned about his right lower extremity numbness. He was evaluated at the ER though x-rays deferred due to no for flag symptoms. He was discharged home with lidocaine patches, naproxen and cyclobenzaprine. [facility] Medical History Schizoaffective disorder PTSD (post-traumatic stress disorder) JACEY (obstructive sleep apnea) MDD (major depressive disorder) SALINAS (generalized anxiety disorder) GERD (gastroesophageal reflux disease) Morbid obesity Surgical History History of right knee surgery History of appendectomy Family History Father Hypertension Mother COPD (chronic obstructive pulmonary disease) Hypertension Asthma Vertigo Brother In good health Sister In good health Son In good health Daughter In good health Social History Housing: Apartment Alcohol intake: never Patient Tobacco Use Status: Former Tobacco user e-Cigarette/Vaping Use: Never Used Second Hand Smoke Exposure: Yes service: No Current occupational status: employed Current occupation: [employer] Cognitive needs: No Hearing needs: No Vision needs: No Questionnaire Thrive Questionnaire Date Thrive assessed: 04/29/23 SALINAS-7 AMB Questionnaire SALINAS-7 Date SALINAS - 7 assessed: 04/29/23 Source: Developed by Drs. Eduard Guerra, Sari Moise, Samy Washington and colleagues, with an educational jac from [employer]. Review of Systems Const Denies headache(s) Eyes Denies loss of vision ENT Denies vertigo, Denies dizziness, Denies headache(s) and Denies sore throat Card Denies chest pain, Denies leg edema and Denies lightheadedness Resp Denies cough, Denies hemoptysis and Denies wheezing GI Denies abdominal pain, Denies melena, Denies constipation, Denies diarrhea and Denies vomiting Denies dysuria, Denies urinary frequency and Denies urinary urgency Musc Denies arthralgias, Denies joint swelling, Denies numbness and Denies tingling Neuro Denies behavioral changes, Denies vertigo, Denies dizziness, Denies headache(s), Denies loss of vision, Denies memory loss, Denies numbness and Denies tingling Psych Denies anxiety, Denies behavioral changes, Denies depression, Denies memory loss and Denies panic attacks Brent/Lymph Denies easy bleeding and Denies easy bruising Aller/Immun Denies wheezing Physical exam (Primary Care) Tobacco/Smoking Status: Tobacco use Status Tobacco use date assessed 04/29/23 12/07/23 15:36 Patient Tobacco Use Status Former Tobacco user 12/07/23 15:36 e-Cigarette/Vaping Use Never Used 12/07/23 15:36 Thrive Assessment: Date of Thrive Assessment Date Thrive assessed 04/29/23 12/07/23 15:36 Telehealth Telehealth Telehealth Platform: Telephone Location of provider rendering services: practice address Location of patient: address on file Patient Identification confirmed using: Name, : Yes Telehealth method: voice only Patient verbally consented to treatment: Yes Patient verbally consented to billing insurance company: Yes Patient informed of any privacy concerns related to visit: Yes Minutes spent on Phone/Video with Pt.: 11 Assessment and Plan Assessment & Plan (1) Lumbar disc disease with radiculopathy: Code(s): M51.16 - Intervertebral disc disorders with radiculopathy, lumbar region Plan: Patient reports signs and symptoms of right lower extremity numbness and tingling in low back pain. Signs and symptoms consistent with a lumbar radiculopathy which likely get better with formal physical therapy. Will give him prednisone taper for inflammation around the nerve. Does have access to cyclobenzaprine and naproxen. Orders: Orders PT Evaluation and Treatment Today M51.16 - Intervertebral disc disorders with radiculopathy, lumbar region, M51.9 - Unspecified thoracic, thoracolumbar and lumbosacral intervertebral disc disorder Medications: New prednisone take 3 tabs x 3 days , take 2 tabs x 3 days , take 1 tab x 3 days 10 mg PO DIRECTED 18 tabs 0RF 9 days M51.16 - Intervertebral disc disorders with radiculopathy, lumbar region Coding Level of Care Code Tele Est Pt Level 4 (15602) Diagnoses Lumbar disc disease with radiculopathy M51.16
== END 2023-12-07 16:43 | disposition home or self-care (01) ==
LOC: HO.HMGH 15:33
PROVIDERS: PCP Physician Assistant; Visit Provider Physician Assistant
DX: M51.16 Intervertebral disc disorders with radiculopathy, lumbar region (principal)
CPT/HCPCS: 99214

== ENCOUNTER 2024-01-29 11:14 | Outpatient (REF) | payer OTHER, SELFPAY ==
--- NOTE | ~2024-01-29 | XR_ITS ---
EXAMINATION: XR ABDOMEN KUB CLINICAL INDICATION: Frequency of micturition. COMPARISON: Most recent CT abdomen/pelvis dated 05/08/2022. TECHNIQUE: AP views of the abdomen. FINDINGS: The bowel gas pattern is normal with no evidence of ileus or obstruction. No unusual soft tissue calcifications are noted. The bones are unremarkable. XR/XR KUB IMPRESSION: Unremarkable examination. Electronically signed by: Scottie Correia MD 01/29/2024 03:57 PM EDT
[2024-01-29 12:30] LABS: Hemoglobin 14.5 g/dl (14.0-18.0); Mean Platelet Volume 12.4 fL (9.4-12.4); Platelet Count 234 X10*3/uL (160-400); Red Blood Count 5.57 X10*6/uL (4.60-5.80); Red Cell Distribution Width 14.6 % (11.0-16.0); White Blood Count 5.5 X10*3/uL (4.8-10.8)
[2024-01-29 12:35] LABS: Appearance Urine Clear; Color Urine Yellow; Glucose Urine UA Negative (Negative); Leukocyte Esterase Urine Negative (Negative); Nitrite Urine Negative (Negative); PH 6.5 (5.0-9.0); Specific Gravity - Urine >= 1.030 (1.005-1.025); Urine Blood Negative (Negative); Urine Ketones Negative (Negative); Urine Protein Negative (Neg-Trace)
[2024-01-29 13:24] LABS: Anion Gap 10 (12-20); Blood Urea Nitrogen 15 mg/dL (9-16); Calcium 9.5 mg/dL (8.4-10.2); Carbon Dioxide 26 mmol/L (22-29); Chloride 110 mmol/L (96-108); Estimated Glomerular Filt Rate > 60; Glucose Random 97 mg/dL (60-115); Sodium 142 mmol/L (135-145)
[2024-02-03 17:38] LABS: Aspergillus Antigen Not Detected (Not Detected); Index Value 0.04 (<0.50)
== END 2024-01-29 11:15 | disposition home or self-care (01) ==
LOC: HO.XRAY 11:14
PROVIDERS: PCP Physician Assistant; Visit Provider Physician Assistant
DX: R05.9 Cough, unspecified (principal); R30.0 Dysuria; R35.0 Frequency of micturition; K21.9 Gastro-esophageal reflux disease without esophagitis
CPT/HCPCS: 36415; 74018; 80048; 81003; 85027; 87305

== ENCOUNTER 2024-02-07 14:35 | Outpatient (REF) | payer OTHER, SELFPAY ==
--- NOTE | ~2024-02-07 | MR_ITS ---
EXAMINATION: MR LUMBAR SPINE WITHOUT CONTRAST CLINICAL INFORMATION: Worsening low back pain with lower extremity weakness and numbness COMPARISON: Lumbar spine x-ray on 05/05/2023 TECHNIQUE: MRI of the lumbar spine was obtained using routine sequences without contrast. Patient was unable to complete the full examination due to anxiety. FINDINGS: There is lumbarization of S1. The visualized lumbar vertebrae are intact with normal alignment. No focal bone lesion with abnormal signal can be seen. Evaluation of the intervertebral discs show: T12/L1: Intervertebral disc height is normal, with normal T2 signal. No focal disc herniation is seen. Bilateral T12/L1 neuroforamina are patent. Bilateral apophyseal joints are intact with normal alignment. L-1/L-2: Intervertebral disc height is normal, with normal T2 signal. No focal disc herniation is seen. Bilateral L1-L2 neuroforamina are patent. Bilateral apophyseal joints are intact with normal alignment. L2/L3: Intervertebral disc height is normal, with normal T2 signal. No focal disc herniation is seen. Bilateral L2-L3 neuroforamina are patent. Bilateral apophyseal joints are intact with normal alignment. L3/L4: Intervertebral disc height is normal, with normal T2 signal. No focal disc herniation is seen. Bilateral L3-L4 neuroforamina are patent. Bilateral apophyseal joints are intact with normal alignment. L4/L5: Intervertebral disc height is normal, with mild loss of T2 signal. Mild right posterior lateral disc protrusion is seen. There is resulting mild asymmetric right L4-L5 neural foraminal stenosis. Bilateral apophyseal joints are intact with normal alignment. L5/S1: Intervertebral disc height is normal, with moderate loss of T2 signal. Moderate midline posterior disc protrusion is seen. Bilateral L5-S1 neuroforamina are mildly stenosed, more severe on the left side. There is moderate spinal stenosis due to impingement by hypertrophic ligamentum flavum. Bilateral apophyseal joints are intact with normal alignment. Conus medullaris is seen normally at L1 level. MR/MR lumbar spine wo con IMPRESSION: 1. Lumbarization of S1. 2. Mild right posterior lateral disc protrusion at L4-L5 with resulting mild asymmetric right L4-L5 neural foraminal stenosis. 3. Moderate midline posterior disc protrusion at L5-S1 and hypertrophic ligamentum flavum with resulting moderate spinal stenosis and mild bilateral L5-S1 neural foraminal stenosis, more severe on the left side. 4. Incomplete examination due to patient's anxiety. Electronically signed by: Blayne Zambrano MD 02/08/2024 10:38 AM [facility]OGER DELAROSA
== END 2024-02-07 14:36 | disposition home or self-care (01) ==
LOC: HO.MRI 14:35
PROVIDERS: PCP Physician Assistant; Visit Provider Physician Assistant
DX: M51.16 Intervertebral disc disorders with radiculopathy, lumbar region (principal)
CPT/HCPCS: 72148

== ENCOUNTER 2024-02-15 10:10 | Outpatient (AMB) | payer OTHER, SELFPAY ==
--- NOTE | 2024-02-15 10:16 | A.SPINEOV_ITS ---
Intake Visit Reasons: STAT Ref Back pain Intake Note: Mr. Bello is here today c/o low back pain that radiate the legs with right leg numbness. Nail Technician Required: No Allergies No Known Allergies [No Known Allergies*] Allergy (Verified 02/15/24 10:17) Assessment & Plan Assessment & Plan (1) Lumbar radiculopathy: Code(s): M54.16 - Radiculopathy, lumbar region Category: Medical Plan Dear NIA Davis, Thank you for referring Mr. Bello to our office today. He is a 38 year old male who comes in today with a chief complaint of low back pain and some shooting pain into his right lower extremity. He states that his back pain is the ?worst other than he has in his by far more severe than his leg pain he says it is left-sided low back pain. In regards to his leg pain he states that it shoots down the lateral aspect of his right leg into his right foot. He associates some numbness with the pain. He reports that his pain is worse with lying flat and better with standing or sitting. 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 He was subsequently evaluated at the emergency department and prescribed muscle relaxers and a course of prednisone. Unfortunately he never took the prednisone & has only taken the muscle relaxers. He has not attempted physical therapy or cortisone injections as of yet. He is still able to walk around his home and navigate stairs without significant issue. PMH: Tendinitis of left elbow, GERD, major depressive disorder, acute episode of schizophrenia in remission, morbid obesity, syncopal episodes, heart palpitations, tinea pedis, migraines. Social hx: Patient does not smoke, reports no substance use. Medications: Bismuth, Excedrin, cyclobenzaprine, diclofenac, gabapentin, olanzapine, ondansetron, pantoprazole, propranolol, triamcinolone. Allergies: NKDA. Physical exam: The patient has 5/5 strength in his upper and lower extremities. He does elicit pain when attempting bilateral iliopsoas testing, worse on the left. He walks without an antalgic gait. He does need to brace himself in order to rise from a seated position. (+) left-sided straight leg raise, (-) right-sided straight leg raise. Imaging review: MRI of the lumbar spine completed here at [facility] shows some mild-moderate right-sided foraminal stenosis at L4-5, and a posterior disc bulge at L5-S1 causing moderate bilateral foraminal stenosis at this level. Unfortunately only the axial and very limited sagittal views could be reddened due to lack of patient compliance with MRI. There is no T2 sagittal view. Impression: Supa is a pleasant 38-year-old male who comes in today with a chief complaint of low back pain and shooting pain into his right lower extremity. He states that his back pain is by far worst in his leg pain. He feels his back pain in his left-sided near the bottom of his spine. He denies any shooting pains down his left lower extremity. He denies any numbness/tingling down his left lower extremity. His MRI is overall difficult to assess as there is no T2 sagittal view due to lack of patient compliance with the imaging. It does appear that he has quite a bit of impingement at L5-S1, likely secondary to an acute disc bulge happened as a result of the inciting incident listed above. I would like to send him for a course of physical therapy and encouraged him to take the steroid medication that was already prescribed for him. After he completes 6-8 weeks of physical therapy if he is still having significant pain he was encouraged to see us again for follow-up. We discussed how the majority of disc protrusions can resorb. Thank you for allowing us to care for your patient. The total time spent with this visit with this patient was 45 minutes reviewing history, physical exam, MRI imaging review, and implementation of treatment plan or further diagnostic testing Gabriel Oneal MD,PhD [facility] Coding Level of Care Code New Pt Level 4 (72008) Diagnoses Lumbar radiculopathy M54.16
== END 2024-02-15 10:38 | disposition home or self-care (01) ==
PROVIDERS: PCP Physician Assistant; Referring Provider Physician Assistant; Visit Provider Physician Assistant
DX: M54.16 Radiculopathy, lumbar region (principal)
CPT/HCPCS: 99204

== ENCOUNTER → 2024-02-15 10:10 | Outpatient (BNVA) | payer OTHER, SELFPAY | PROVIDERS: PCP Physician Assistant; Referring Provider Physician Assistant; Visit Provider Physician Assistant | DX: M54.16 Radiculopathy, lumbar region (principal) | CPT/HCPCS: 99202 ==

== ENCOUNTER 2024-04-12 13:06 | Outpatient (AMB) | payer OTHER, SELFPAY ==
--- NOTE | 2024-04-12 13:19 | MHC.PC.OV ---
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 Accompanied by: Son Allergies No Known Allergies [No Known Allergies*] Allergy (Verified 04/12/24 13:40) Medication List - Last Reconciled 04/12/24 by Gallito Davis PA-C olanzapine 5 - 10 mg PO BEDTIME triamcinolone acetonide 0.5% 1 appl topical DAILY 15 days Tobacco use date assessed: 04/12/24 Dental Screening Dental Screen Date: 04/12/24 Did you have a dental visit in the last 12 months?: Yes Did you have a dental problem in the last 6 months where you did not have access to dental care?: No Was dental information given to patient?: Patient has dentist HPI [facility] [place] [facility] HPI Details The patient is a 38-year-old male presenting with dizziness and sensation of being off-balance, which began approximately a week and a half prior to an emergency room visit. Initial symptoms included nausea and dizziness, which persisted and progressively worsened after a trip where the patient drove long distances. Following the trip, the patient experienced increased symptoms, including a sensation similar to motion sickness, an unsteady feeling kaylee to being tipsy, severe nausea, and difficulty maintaining balance. A series of ER evaluations showed no significant abnormalities, including negative blood work, CT scans of the head and neck, EKGs, and chest x-rays. Tachycardia occurred the day after the ER visit, with heart rates reaching 130 bpm, which was not accompanied by known medical abnormalities. The patient reports auditory symptoms, including an intrusive high-pitched noise interpreted as tinnitus. Current lifestyle changes have included significant weight loss due to dietary modifications such as eliminating meat and carbohydrates without formal nutritional replacement guidance. The patient has a history of spinal stenosis and sciatica, noting persistent numbness in parts of the leg. The patient used to take various medications, including psychological medications and blood pressure management drugs, but has since discontinued their use. [facility] Medical History (Updated 04/13/24 @ 07:41 by Gallito Davis PA-C) MDD (major depressive disorder) Schizoaffective disorder PTSD (post-traumatic stress disorder) JACEY (obstructive sleep apnea) SALINAS (generalized anxiety disorder) GERD (gastroesophageal reflux disease) Morbid obesity Surgical History History of right knee surgery History of appendectomy Family History Father Hypertension Mother COPD (chronic obstructive pulmonary disease) Hypertension Asthma Vertigo Brother In good health Sister In good health Son In good health Daughter In good health Social History Housing: Apartment Alcohol intake: never Patient Tobacco Use Status: Former Tobacco user e-Cigarette/Vaping Use: Never Used Second Hand Smoke Exposure: Yes service: No Current occupational status: employed Current occupation: [employer] Cognitive needs: No Hearing needs: No Vision needs: No Questionnaire PHQ-9 Over the last 2 weeks, how often have you been bothered by any of the following problems? 1. Little interest or pleasure in doing things: more than half the days 2. Feeling down, depressed, or hopeless: nearly every day 3. Trouble falling or staying asleep, or sleeping too much: nearly every day 4. Feeling tired or having little energy: nearly every day 5. Poor appetite or overeating: more than half the days 6. Feeling bad about yourself - or that you are a failure or have let yourself or your family down: several days 7. Trouble concentrating on things, such as reading the newspaper or watching television: more than half the days 8. Moving or speaking so slowly that other people could have noticed. Or the opposite - being so fidgety or restless that you have been moving around a lot more than usual: several days 9. Thoughts that you would be better off or of hurting yourself in some way: several days Total score: 18 Depression Screening Interpretation: Positive Depression Screening Follow-up: Existing condition and Declines treatment Depression Screening Done: Yes 98181 - PHQ-9 Billing: Yes Source: Developed by Drs. Eduard Guerra, Sari Moise, Samy Washington and colleagues, with an educational jac from [employer]. Thrive Questionnaire Date Thrive assessed: 04/12/24 I am a: Patient What is your living situation today?: I have a steady place to live Within the past 12 months, did the food you bought not last and you didn't have the money to get more?: Never true Within the past 12 months, did you worry whether your food would run out before you got money to buy more?: Never true Do you have trouble paying for medicines?: No Do you have trouble getting transportation to medical appointments?: No Do you have trouble paying your heating and electricity bill?: No Do you have trouble taking care of your child, family member or friend?: No Do you have trouble with day-to-day activities such as bathing, preparing meals, shopping, managing finances, etc.?: No Are you currently unemployed and looking for a job?: No Are you interested in more education?: No Please select the resources that you would like help with: None Currently or been in a relationship where the following occur: No concerns reported THRIVE Score: 0 AUDIT C Alcohol Use Questionnaire (AUDIT-C) 1. How often do you have a drink containing alcohol?: Never 3. How often do you have six or more drinks on one occasion?: Never Total Score: 0 SALINAS-7 AMB Questionnaire SALINAS-7 Date SALINAS - 7 assessed: 04/12/24 Feeling nervous, anxious, or on edge: 0 = Not at all Not being able to stop or control worryin = Not at all Worrying too much about different things: 0 = Not at all Trouble relaxin = Not at all Being so restless that it is hard to sit still: 0 = Not at all Becoming easily annoyed or irritable: 0 = Not at all Feeling afraid as if something awful might happen: 0 = Not at all Total SALINAS-7 score (0-4 normal; 5-9 mild; 10-14 moderate; 15-21 severe): 0 Source: Developed by Drs. Eduard Guerra, Sari Moise, Samy Washington and colleagues, with an educational jac from [employer]. SALINAS-7 Assessment Billing SALINAS-7 Assessment Tool: SALINAS-7 Assessment 07986 Review of Systems Const Denies headache(s) Eyes Denies loss of vision ENT Denies vertigo, Reports dizziness, Denies headache(s) and Denies sore throat Card Denies chest pain, Denies leg edema and Denies lightheadedness Resp Denies cough, Denies hemoptysis and Denies wheezing GI Denies abdominal pain, Denies melena, Denies constipation, Denies diarrhea and Denies vomiting Denies dysuria, Denies urinary frequency and Denies urinary urgency Musc Denies arthralgias, Denies joint swelling, Denies numbness and Denies tingling Neuro Denies Abnormal speech present, Denies behavioral changes, Denies vertigo, Reports dizziness, Denies headache(s), Denies loss of vision, Denies memory loss, Denies numbness and Denies tingling Psych Denies anxiety, Denies behavioral changes, Denies depression, Denies memory loss and Denies panic attacks Brent/Lymph Denies easy bleeding and Denies easy bruising Aller/Immun Denies wheezing Physical exam (Primary Care) Vital Signs: Last Vital Signs Temp 97.3 F 04/12/24 13:32 Pulse 78 04/12/24 13:32 BP 114/76 04/12/24 13:32 Pulse Ox 98 04/12/24 13:32 Oxygen Delivery Method Room Air 04/12/24 13:32 BMI result Body Mass Index 41.3 Tobacco/Smoking Status: Tobacco use Status Tobacco use date assessed 04/12/24 04/12/24 13:35 Patient Tobacco Use Status Former Tobacco user 04/12/24 13:19 e-Cigarette/Vaping Use Never Used 04/12/24 13:19 PHQ-9: PHQ-9 Score PHQ-9: Total score 18 04/12/24 13:56 Depression Screening Interpretation: Positive Depression Screening Follow-up: Existing condition and Declines treatment Thrive Assessment: Date of Thrive Assessment Date Thrive assessed 04/12/24 04/12/24 13:35 Currently or been in a relationship where the following occur: No concerns reported Const General: healthy appearing, no acute distress, alert and awake Nutritional Appearance: well nourished Orientation/consciousness: oriented to person, oriented to place and oriented to time HENMT Other: NOTICED CERUMEN IMPACTION ON RIGHT EAR. NOTED INCREASE DIZZINESS WHEN LYING DOWN SUPINE. Ears: TM's normal bilaterally General nose exam: Normal nasal mucous membranes and turbinates present Eyes Conjunctivae: conjunctivae normal Sclerae: sclerae normal Pupils: Equal, round and reactive pupils present Neck Neck: Yes no lymphadenopathy and Yes no JVD Thyroid: Thyroid normal Carotids: no bruits Resp Effort & Inspection: normal respiratory effort and not tachypneic Auscultation: no crackles, no rales, no rhonchi and no wheezes Cardio Rate: regular rate Rhythm: regular rhythm Heart sounds: no murmurs and normal S1 and S2 GI Palpation (GI): Soft to palpation, nontender, no hepatomegaly and no splenomegaly Auscultation: normal bowel sounds Skin General skin exam: no rashes or lesions noted and dry skin Neuro General: oriented to person, oriented to place and oriented to time Cranial nerves: Yes Equal, round and reactive pupils present Speech: No Abnormal speech present Gait exam (Neuro): Normal gait present Motor exam (neuro): no tremor noted Extrem Right upper extremity: full ROM Left upper extremity: full ROM Right lower extremity: full ROM; no edema Left lower extremity: full ROM; no edema Psych Mental Status: mental status grossly normal Speech and movement: Normal speech and movement present Affect: normal affect Attitude: cooperative Thought process: Normal thought process present Coding Level of Care Code Est Pt Level 3 (67791) Diagnoses Vestibular dysfunction of both ears H81.93 Laterality: bilateral Current moderate episode of major depressive disorder without prior episode F32.1 Major depression recurrence: single episode Active/Remission status: currently active Major depression episode severity: moderate Additional Codes SALINAS-7 Assessment Billing - SALINAS-7 Assessment Tool: SALINAS-7 Assessment 13467 ([id number]) PHQ-9 - 29912 - PHQ-9 Billing: Yes ([id number]) Assessment & Plan Assessment & Plan (1) Vestibular dysfunction: Code(s): H81.90 - Unspecified disorder of vestibular function, unspecified ear Category: Medical Qualifiers: Laterality: bilateral Qualified Code(s): H81.93 - Unspecified disorder of vestibular function, bilateral Plan: I discussed the likely diagnosis of a vestibular disorder contributing to the patient's vertigo and tinnitus symptoms. I recommended starting vestibular therapy, specifically the Dane maneuvers, and prescribed Meclizine to manage dizziness. We discussed the potential anxiety component and affirmed the absence of significant findings from recent emergency department evaluations, including imaging and laboratory tests. I advised continuing lifestyle changes with careful nutritional balance. We went over the patient's need for earwax removal to address tinnitus and the need for continued attention to spinal stenosis with possible neurosurgical evaluation and physical therapy. (2) MDD (major depressive disorder): Code(s): F32.9 - Major depressive disorder, single episode, unspecified Category: Medical Qualifiers: Major depression recurrence: single episode Active/Remission status: currently active Major depression episode severity: moderate Qualified Code(s): F32.1 - Major depressive disorder, single episode, moderate Plan: Noted patient's PHQ-9 score positive major depressive disorder which has been existing condition for him. He was on medications and was picking with a mental health therapist in the past though has discontinued all of this. He feels he is taking a more natural route and he has support from his family. Will consider reestablishing with a mental health therapist of anxiety and depression worsen Orders: Orders Comprehensive [place]. Panel Fast 04/12/24 Z13.1 - Encounter for screening for diabetes mellitus PT Evaluation and Treatment 04/12/24 H81.93 - Unspecified disorder of vestibular function, bilateral Complete Blood Count no Diff 04/12/24 K21.9 - Gastro-esophageal reflux disease without esophagitis Medications: New meclizine 25 mg PO BID 14 tabs 0RF dizziness 7 days H81.93 - Unspecified disorder of vestibular function, bilateral
[2024-04-12 13:32] VITALS: BP 114/76; PULSE 78; TEMP 36.3; O2SAT 98; BMI 41.3
== END 2024-04-12 14:05 | disposition home or self-care (01) ==
PROVIDERS: PCP Physician Assistant; Visit Provider Physician Assistant
DX: H81.93 Unspecified disorder of vestibular function, bilateral (principal); F32.1 Major depressive disorder, single episode, moderate

== ENCOUNTER → 2024-04-12 13:06 | Outpatient (BNVA) | payer OTHER, SELFPAY | PROVIDERS: PCP Physician Assistant; Visit Provider Physician Assistant | DX: H81.93 Unspecified disorder of vestibular function, bilateral (principal); F32.1 Major depressive disorder, single episode, moderate; K21.9 Gastro-esophageal reflux disease without esophagitis | CPT/HCPCS: 96127; 99212 ==

== ENCOUNTER 2024-05-03 11:44 | Outpatient (AMB) | payer OTHER, SELFPAY ==
[2024-05-03 11:46] VITALS: BP 94/68; PULSE 88; TEMP 36.2; O2SAT 99; BMI 41.0
--- NOTE | 2024-05-03 11:46 | A.OFFPC_ITS ---
Vital Signs 05/03/24 11:46 Height 5 ft 11 in Weight 294 lb 4 oz BMI 41.0 BP 94/68 Blood Pressure Location Lt brachial Position Sitting Pulse 88 Pulse Source Pulse Oximeter Temp 97.1 F Temp Source Temporal Artery Scan Pulse Oximetry (%) 99 Oxygen Delivery Method Room Air Intake Visit Reasons: annual exam - see comments Edge Roller Required: No Accompanied by: Spouse Allergies No Known Allergies [No Known Allergies*] Allergy (Verified 05/03/24 11:50) Medication List - Last Reconciled 05/03/24 by Gallito Davis PA-C meclizine 25 mg PO BID 7 days olanzapine 5 - 10 mg PO BEDTIME triamcinolone acetonide 0.5% 1 appl topical DAILY 15 days Tobacco use date assessed: 04/12/24 Dental Screening Dental Screen Date: 04/12/24 HPI annual exam - see comments HPI Details The patient is a 38-year-old male here today for an annual physical. She has a past medical history significant for anxiety and depression. He has been suffering with predominantly tinnitus, and a history of vertigo. The tinnitus began intermittently after a previous episode of dizziness which has since resolved. The patient described the tinnitus as a persistent ringing noise, mainly affecting the right ear, following an episode of vertigo. Past management for vertigo included prescribed exercises aimed at amelioration of symptoms, which helped resolve the dizziness under home conditions. However, the patient fears exacerbation and refrains from laying fully down during these exercises. Otoscopic examination revealed impacted cerumen in the right ear, suspected to contribute to the tinnitus and intermittent episodes of decreased hearing. The patient has also reported anxiety, especially related to these ear symptoms, describing how severe episodes hindered sleep and heightened his existing anxiety levels. The patient notes a family history of obesity-related health issues such as hypertension. He himself is focused on weight reduction efforts, including diet modifications like reducing dairy consumption due to lactose intolerance. [facility] Medical History (Updated 05/03/24 @ 13:36 by Gallito Davis PA-C) MDD (major depressive disorder) Schizoaffective disorder PTSD (post-traumatic stress disorder) JACEY (obstructive sleep apnea) SALINAS (generalized anxiety disorder) GERD (gastroesophageal reflux disease) Surgical History History of right knee surgery History of appendectomy Family History Father Hypertension Mother COPD (chronic obstructive pulmonary disease) Hypertension Asthma Vertigo Brother In good health Sister In good health Son In good health Daughter In good health Social History Housing: Apartment Alcohol intake: never Patient Tobacco Use Status: Former Tobacco user e-Cigarette/Vaping Use: Never Used Second Hand Smoke Exposure: Yes service: No Current occupational status: employed Current occupation: [employer] Cognitive needs: No Hearing needs: No Vision needs: No Questionnaire Thrive Questionnaire Date Thrive assessed: 04/12/24 SALINAS-7 AMB Questionnaire SALINAS-7 Date SALINAS - 7 assessed: 04/12/24 Source: Developed by Drs. Edurad Guerra, Sari Moise, Samy Washington and colleagues, with an educational jac from [employer]. Review of Systems Const Denies body aches, Denies chills, Denies excessive sweating, Denies fatigue, Denies fever(s) and Denies headache(s) Eyes Denies blurry vision ENT Denies dysphagia, Denies vertigo, Denies dizziness, Denies headache(s), Denies hearing loss and Denies tinnitus Card Denies chest pain, Denies chest pain with activity, Denies syncope, Denies irregular heart rhythm and Denies dyspnea Resp Denies chest congestion, Denies cough, Denies hemoptysis, Denies dyspnea and Denies wheezing GI Denies abdominal pain, Denies melena, Denies hematochezia, Denies coffee ground emesis, Denies dysphagia, Denies diarrhea, Denies nausea and Denies vomiting Denies difficulty urinating, Denies dysuria, Denies urinary frequency, Denies urinary hesitancy and Denies urinary urgency Musc Denies arthralgias, Denies limited range of motion, Denies muscle cramps and Denies muscle weakness Skin/Breast Denies rash and Denies skin ulcer Neuro Denies Abnormal speech present, Denies confusion, Denies vertigo, Denies dizziness, Denies syncope, Denies headache(s), Denies memory loss and Denies seizure-like activity Psych Denies anxiety, Denies confusion, Denies depression, Denies memory loss, Denies panic attacks and Denies paranoia Endo Denies excessive sweating, Denies fatigue, Denies flushing, Denies polydipsia and Denies polyuria Aller/Immun Denies wheezing Physical exam (Primary Care) Vital Signs: Last Vital Signs Temp 97.1 F 05/03/24 11:46 Pulse 88 05/03/24 11:46 BP 94/68 05/03/24 11:46 Pulse Ox 99 05/03/24 11:46 Oxygen Delivery Method Room Air 05/03/24 11:46 BMI result Body Mass Index 41.0 Tobacco/Smoking Status: Tobacco use Status Tobacco use date assessed 04/12/24 05/03/24 11:49 Patient Tobacco Use Status Former Tobacco user 05/03/24 11:49 e-Cigarette/Vaping Use Never Used 05/03/24 11:49 Thrive Assessment: Date of Thrive Assessment Date Thrive assessed 04/12/24 05/03/24 11:49 Const General: cooperative, comfortable, no acute distress, alert and awake; No confusion Orientation/consciousness: oriented to person, oriented to place, patient oriented x3 and No confusion HENMT Head: Yes normocephalic Ears: external ears normal and TM's normal bilaterally Face and sinus: No sinus tenderness Mouth: Normal oral and palatal mucosa present and tongue normal Teeth and gingiva: dentition normal and gingiva normal Throat: Yes posterior oropharynx normal, Yes tonsils normal and Yes uvula midline Eyes Conjunctivae: conjunctivae normal Sclerae: sclerae normal Pupils: Equal, round and reactive pupils present EOM: EOMs intact bilaterally Direct Ophthalmoscopy: No no photophobia Neck Neck: Yes no lymphadenopathy, No tender and Yes no JVD Thyroid: Thyroid normal Carotids: no bruits Chest Chest palpation & inspection: no tenderness Resp Effort & Inspection: normal respiratory effort, no audible wheezes, not labored and no stridor Auscultation: no crackles, no rales, no rhonchi and no wheezes Cardio Jugular venous distension: no JVD Rate: regular rate, not bradycardic and not tachycardic Rhythm: regular rhythm Bruits: no carotid bruits Peripheral pulses: Peripheral pulses 2+ throughout GI Inspection: Yes normal to inspection, No abdominal wall ecchymosis and No visible herniation Palpation (GI): Soft to palpation, nontender, no guarding, not rigid and No hepatosplenomegaly present Auscultation: normoactive bowel sounds General: Yes no CVA tenderness Back/Spine/Pelvis Back: no CVA tenderness and No back tenderness Cervical Spine: cervical ROM normal Thoracic/Lumbar Spine: thoracic and lumbar spine normal to inspection, straight leg raise negative bilaterally, No thoraco-lumbar ROM limited and No lumbar spinal tenderness Skin Lesions: no lesions Rashes: no rashes Wounds: no wounds Neuro General: oriented to person, oriented to place, patient oriented x3, CN's II-XI intact bilaterally and No confusion Cranial nerves: Yes Equal, round and reactive pupils present and Yes Normal accommodation reflex present Cognition (Neuro): normal cognition Speech: No Abnormal speech present Gait exam (Neuro): Normal gait present Motor exam (neuro): 5/5 motor strength present throughout Extrem Right upper extremity: full ROM; no cyanosis Left upper extremity: full ROM; no cyanosis Right lower extremity: no edema Left lower extremity: no edema Psych Appearance: grossly normal Mental Status: mental status grossly normal Affect: normal affect Attitude: cooperative Thought process: Normal thought process present Coding Level of Care Code Est Pt Prev Care 18-39y([id number]) Diagnoses Annual physical exam Z00.00 Right ear impacted cerumen H61.21 Severe episode of recurrent major depressive disorder, with psychotic features F33.3 Psychotic features: with psychotic features Class 3 obesity E66.813 Assessment & Plan Assessment & Plan (1) Annual physical exam: Code(s): Z00.00 - Encounter for general adult medical examination without abnormal findings Category: Medical Plan: As per HPI (2) Right ear impacted cerumen: Code(s): H61.21 - Impacted cerumen, right ear Category: Medical Plan: Has a notable right ear cerumen impaction, have tried to remove cerumen today in office though only removed partial. He is to anxious to do ear lavage at this time. He has upcoming appointment with ENT specialty this week. (3) MDD (major depressive disorder), recurrent episode, severe: Code(s): F33.2 - Major depressive disorder, recurrent severe without psychotic features Category: Medical Qualifiers: Psychotic features: with psychotic features Qualified Code(s): F33.3 - Major depressive disorder, recurrent, severe with psychotic symptoms Plan: Patient has a history of depression he has been able to control with family support and continued with olanzapine (4) Class 3 obesity: Code(s): E66.813 - Obesity, class 3 Category: Medical Plan: Patient does understand his BMI is over 40 and will work on being more physically active and adapting to better eating habits to reduce his weight.
--- OUTSIDE RECORDS SUMMARY | 2024-05-03 12:40 | XMS_ITS | Clinical Summary ---
Author Organization [facility] Address [address] [place] [address] Phone Care Team Providers Care Carpenter'S Assistant Name Role Phone Michael Wynne MD Primary Care Provider Social History Tobacco Use Types Packs/Day Years Used Date Smoking Tobacco: Never Assessed Sex and Gender Information Value Date Recorded Sex Assigned at Not on file Gender Identity Not on file Sexual Orientation Not on file Last Filed Vital Signs Vital Sign Reading Time Taken Comments Blood Pressure - - Pulse - - Temperature - - Respiratory Rate - - Oxygen Saturation - - Inhaled Oxygen Concentration - - Weight 137 kg (302 lb) 04/07/2023 1:34 PM EST Height 180.3 cm (5' 11 ) 04/07/2023 1:34 PM EST Body Mass Index 42.12 04/07/2023 1:34 PM EST Plan of Treatment Health Maintenance Due Date Last Done Comments Hepatitis B Vaccines (1 of 3 - 19+ 3-dose series) 2004 Cholesterol Screening (Lipid Panel) 03/02/2022 Depression Screening 03/02/2022 HIV Screening 03/02/2022 Hepatitis C Screening 03/02/2022 Social Influencers of Health Screening 03/02/2022 COVID-19 Vaccine (1 - 2023-2 5 season) 2023 Influenza Vaccine (#1) 2023 02/04/2017 DTaP,Tdap,and Td Vaccines (2 - Td or Tdap) 09/11/2026 09/11/2016 HIB Vaccines Aged Out No longer eligi ble based on patient's age to complete this topic HPV Vaccines Aged Out No longer eligi ble based on patient's age to complete this topic Hepatitis A Vaccines Aged Out No long er eligible based on patient's age to complete this topic IPV Vaccines Aged Out No longer eligi ble based on patient's age to complete this topic MMR Vaccines Aged Out No longer eligi ble based on patient's age to complete this topic Meningococcal ACWY Vaccine Aged Out N o longer eligible based on patient's age to complete this topic Pneumococcal Vaccine: Pediat rics (0 to 5 Years) and At-Risk Patients (6 to 64 Years) Aged Out No longer eligi ble based on patient's age to complete this topic RSV Immunization Patients Un lori 20 months Aged Out No longer eligible b ased on patient's age to complete this topic Varicella Vaccines Aged Out No longer eligible based on patient's age to complete this topic Care Teams Carpenter'S Assistant Relationship Specialty Start Date End Date Michael Wynne MD [address] [place] [address] [address] [place] PCP - General Internal Medicine 09/26/16
== END 2024-05-03 12:14 | disposition home or self-care (01) ==
PROVIDERS: PCP Physician Assistant; Visit Provider Physician Assistant
DX: Z00.00 Encounter for general adult medical examination without abnormal findings (principal); F33.3 Major depressive disorder, recurrent, severe with psychotic symptoms; E66.813 Obesity, class 3; Z68.41 Body mass index [BMI] 40.0-44.9, adult; H61.21 Impacted cerumen, right ear

== ENCOUNTER → 2024-05-03 11:44 | Outpatient (BNVA) | payer OTHER, SELFPAY | PROVIDERS: PCP Physician Assistant; Visit Provider Physician Assistant | DX: Z00.01 Encounter for general adult medical examination with abnormal findings (principal); H61.21 Impacted cerumen, right ear; F33.3 Major depressive disorder, recurrent, severe with psychotic symptoms; E66.813 Obesity, class 3; Z68.41 Body mass index [BMI] 40.0-44.9, adult; Z71.3 Dietary counseling and surveillance | CPT/HCPCS: 99395 ==

== ENCOUNTER 2024-10-04 13:43 | Outpatient (AMB) | payer OTHER, SELFPAY ==
--- NOTE | 2024-10-04 13:47 | MHC.OFFVIS ---
Vital Signs 10/04/24 13:48 Height 5 ft 11 in Weight 296 lb BMI 41.3 BP 126/80 Blood Pressure Location Lt brachial Position Sitting Pulse 92 Pulse Source Pulse Oximeter Pulse Oximetry (%) 98 Oxygen Delivery Method Room Air Intake Visit Reasons: Dysphagia w/ solid foods. [facility] 2022. Intake Note: ESTABLISHED PATIENT for eval of dysphagia with certain solid foods. [facility] 2022. CC; C.O. LUQ abd pain, bloating, review having stool sample done, was supposed to have one done previously. Allergies No Known Allergies (No Known Allergies*) Allergy (Verified 05/03/24 11:50) HPI HPI Dysphagia w/ solid foods. [facility] 2022.: Details: LAST VISIT 10/27/2022 Dysphagia Will do H pylori testing and treat empirically positive. Will check transglutaminase to rule out celiac disease. Will start patient on pantoprazole. Patient was previously on omeprazole and has not been helpful. GERD (gastroesophageal reflux disease) Start pantoprazole daily. H pylori breath test in the office today. Treatment if positive. Will send patient for upper endoscopy to rule out gastritis, esophagitis, duodenitis, H pylori, celiac, Petersen's. I will see him after the procedure, sooner on as needed basis. Patient is agreeable to this plan and verbalizes understanding of instructions. He was given the opportunity to ask questions and all questions answered. ? Thank you for allowing me to participate in his care Plan Orders Transglutaminase IgA 10/27/22 R10.9 - Unspecified abdominal pain Transglutaminase Ab IgG 10/27/22 R10.9 - Unspecified abdominal pain H Pylori Breath Test 10/28/22 New pantoprazole take one tablet half an hour before breakfast 40 mg PO DAILY 30 tabs 2RF K21.9 - Gastro-esophageal reflux disease without esophagitis Discontinued dicyclomine Discontinued Reason: Patient Completed Course 20 mg PO QID PRN 20 tabs 0RF abdominal pain omeprazole Discontinued Reason: Doctor's Order 20 mg PO DAILY 30 days 30 caps 3RF K21.9 - Gastro-esophageal reflux disease without esophagitis IT TODAY'S VISIT Patient is here today for requested visit. Increased dysphagia. Patient was seen in 2022 for acid reflux. Was supposed to go for upper endoscopy. Patient was treated at that time for H pylori, never retested. Patient never had upper endoscopy scheduled unsure why. Patient is having significant dysphagia now. PCP send patient to get barium swallow, not scheduled yet. Patient reports that after he was seen here in 2022 and after he completed treatment for H pylori he was feeling little better, stop taking PPI. Patient has not been taking PPIs for quite some times. Reports that he would have severe reflux with food coming up almost every time he ate anything. Patient reports that he changed his diet. Currently is not eating anything spicy or greasy [facility] Medical History MDD (major depressive disorder) Schizoaffective disorder PTSD (post-traumatic stress disorder) JACEY (obstructive sleep apnea) SALINAS (generalized anxiety disorder) GERD (gastroesophageal reflux disease) Surgical History History of right knee surgery History of appendectomy Family History Father Hypertension Mother COPD (chronic obstructive pulmonary disease) Hypertension Asthma Vertigo Brother In good health Sister In good health Son In good health Daughter In good health Social History Housing: Apartment Alcohol intake: never Patient Tobacco Use Status: Former Tobacco user e-Cigarette/Vaping Use: Never Used Second Hand Smoke Exposure: Yes service: No Current occupational status: employed Current occupation: [employer] Cognitive needs: No Hearing needs: No Vision needs: No Review of Systems Const Denies weight gain and Denies weight loss ENT Reports no additional complaints, Reports dysphagia and Denies odynophagia Card Reports no additional complaints Resp Reports no additional complaints GI Denies abdominal pain, Denies belching, Denies melena, Reports bloating, Denies change in bowel habits, Reports dysphagia, Denies excessive flatus, Reports dyspepsia, Reports heartburn, Denies diarrhea, Denies loose stools, Denies nausea, Denies odynophagia and Denies vomiting Reports no additional complaints Musc Reports no additional complaints Neuro Reports no additional complaints Psych Reports no additional complaints Endo Reports no additional complaints Physical Exam Vital Signs: Last Vital Signs Pulse 92 10/04/24 13:48 BP 126/80 10/04/24 13:48 Pulse Ox 98 10/04/24 13:48 Oxygen Delivery Method Room Air 10/04/24 13:48 BMI result Body Mass Index 41.3 Const General: healthy appearing, no acute distress and well developed Nutritional Appearance: obese Orientation/consciousness: patient oriented x3 Resp Effort & Inspection: normal respiratory effort, able to speak in complete sentences, no tracheal deviation and symmetric chest movement Auscultation: clear to auscultation bilaterally Cardio Rate: regular rate GI Inspection: Yes normal to inspection, No distended and Yes obesity Palpation (GI): Soft to palpation, not firm, nontender and No hepatosplenomegaly present Auscultation: normal bowel sounds General: Yes no CVA tenderness Back/Spine/Pelvis Back: no CVA tenderness Skin General skin exam: elasticity normal, turgor normal and dry skin Neuro General: patient oriented x3 Psych Appearance: grossly normal Mental Status: mental status grossly normal Assessment & Plan Assessment & Plan (1) GERD (gastroesophageal reflux disease): Code(s): K21.9 - Gastro-esophageal reflux disease without esophagitis Category: Medical Qualifiers: Esophagitis presence: without esophagitis Qualified Code(s): K21.9 - Gastro-esophageal reflux disease without esophagitis (2) Dysphagia: Code(s): R13.10 - Dysphagia, unspecified Category: Medical Qualifiers: Dysphagia type: pharyngeal phase Qualified Code(s): R13.13 - Dysphagia, pharyngeal phase (3) Postprandial epigastric pain: Code(s): R10.13 - Epigastric pain (4) Dyspepsia: Code(s): R10.13 - Epigastric pain Plan Message sent to surgical schedulers to book procedure for patient. Availability next week Thursday and . Patient will be checked for H pylori. Will treat empirically again is positive. Patient was encouraged to keep appointment after the procedure and appointment for the procedure. Patient is exhibiting slight and anxiety about what is going on and about his dysphagia. Patient was encouraged to follow current instructions for both the procedure and if positive for H pylori complete treatment. Continue avoiding dietary triggers as he is doing currently. Information about the procedure discussed with patient. Information about procedure printed and given to patient as well. He will follow-up after the procedure, sooner on as needed basis. He is agreeable to current plan of care and verbalizes understanding of instructions. He was given the opportunity to ask questions and all questions answered. Thank you for allowing me to participate in his care Orders: Orders H Pylori Breath Test Today K21.9 - Gastro-esophageal reflux disease without esophagitis Medications: New pantoprazole take one tablet half an hour before breakfast 40 mg PO DAILY 30 tabs 2RF K21.9 - Gastro-esophageal reflux disease without esophagitis Coding Level of Care Code Est Pt Level 4 (44672) Complex EM visit Add On G2211 Diagnoses Gastroesophageal reflux disease without esophagitis K21.9 Esophagitis presence: without esophagitis Pharyngeal dysphagia R13.13 Dysphagia type: pharyngeal phase Postprandial epigastric pain R10.13 Dyspepsia R10.13 Time Spent (min) 40 Comment 25 minutes spent with patient and additional 15 minutes spent reviewing his records
[2024-10-04 13:48] VITALS: BP 126/80; PULSE 92; O2SAT 98; BMI 41.3
--- OUTSIDE RECORDS SUMMARY | 2024-10-04 14:31 | XMS_ITS | Clinical Summary ---
Author Organization [facility] Address [address] [place] [address] Phone Care Team Providers Care Filter Operator Name Role Phone Michael Wynne MD Primary Care Provider Social History Tobacco Use Types Packs/Day Years Used Date Smoking Tobacco: Never Assessed Sex and Gender Information Value Date Recorded Sex Assigned at Not on file Legal Sex Male 2:07 AM EST Gender Identity Not on file Sexual Orientation [...] 2023-2 5 season) 2023 Influenza Vaccine (#1) 2024 02/04/2017 DTaP,Tdap,and Td Vaccines (2 - Td [...] patient's age to complete this topic Meningococcal B Vaccine Aged Out No l onger eligible based on patient's age to complete this topic Pneumococcal Vaccine: Pediat rics (0 to 5 Years) and At-Risk Patients (6 to 49 Years) Aged Out No longer eligi ble based on patient's age to complete this topic RSV Immunization Patients Un lori 20 months Aged Out No longer eligible b ased on patient's age to complete this topic Varicella Vaccines Aged Out No longer eligible based on patient's age to complete this topic Care Teams Filter Operator Relationship Specialty Start Date End Date Michael Wynne MD [address] [place] [address] [address] [place] PCP - General Internal Medicine 09/26/16
== END 2024-10-04 14:30 | disposition home or self-care (01) ==
LOC: HO.HGI 13:44
PROVIDERS: PCP Physician Assistant; Visit Provider Nurse Practitioner Family
DX: K21.9 Gastro-esophageal reflux disease without esophagitis (principal); R13.13 Dysphagia, pharyngeal phase; R10.13 Epigastric pain
CPT/HCPCS: 99214; G2211

== ENCOUNTER 2024-10-04 13:43 | Outpatient (REF) | payer OTHER, SELFPAY | END 2024-10-04 13:44 | disposition home or self-care (01) | LOC: HO.LNP 13:43 | PROVIDERS: PCP Physician Assistant; Visit Provider Nurse Practitioner Family | DX: K21.9 Gastro-esophageal reflux disease without esophagitis (principal); R10.13 Epigastric pain; R13.13 Dysphagia, pharyngeal phase | CPT/HCPCS: 83013; 99212 ==

== ENCOUNTER 2024-10-18 10:10 | Outpatient (REF) | payer OTHER, SELFPAY ==
--- NOTE | 2024-10-18 11:20 | ECG_ITS ---
Test Reason : PALPITATIONS Blood Pressure : */* mmHG Vent. Rate : 72 BPM Atrial Rate : 72 BPM P-R Int : 144 ms QRS Dur : 82 ms QT Int : 348 ms P-R-T Axes : 58 -17 28 degrees QTcB Int : 381 ms Normal sinus rhythm Normal ECG When compared with ECG of 09-Feb-2018 13:24, No significant change was found Referred By: Gallito Davis Electronically Signed By: Kendall Delgadillo
[2024-10-18 11:42] LABS: Hematocrit 46.1 % (42.0-52.0); Hemoglobin 15.1 g/dl (14.0-18.0); Mean Corpuscular HGB Conc 32.8 g/dl (31.0-36.0); Mean Corpuscular Hemoglobin 26.2 pg (27.0-33.0); Mean Corpuscular Volume 79.9 fL (80.0-98.0); NRBC Abs Auto 0.000 X10*3/uL (0.0-0.012); NRBC Pct Auto 0.0 /100WBC (0.0-0.2); Platelet Count 215 X10*3/uL (160-400); Red Blood Count 5.77 X10*6/uL (4.60-5.80); White Blood Count 4.6 X10*3/uL (4.8-10.8)
== END 2024-10-18 10:11 | disposition home or self-care (01) ==
LOC: HO.LAB 10:10
PROVIDERS: PCP Physician Assistant; Visit Provider Physician Assistant
DX: F41.1 Generalized anxiety disorder (principal); K21.9 Gastro-esophageal reflux disease without esophagitis; A04.8 Other specified bacterial intestinal infections; R20.2 Paresthesia of skin; R00.2 Palpitations; Z13.31 Encounter for screening for depression; Z13.39 Encounter for screening examination for other mental health and behavioral disorders
CPT/HCPCS: 36415; 84443; 85027; 93005; 96127; 99212

== ENCOUNTER 2024-10-18 10:10 | Outpatient (AMB) | payer OTHER, SELFPAY ==
--- NOTE | 2024-10-18 10:14 | MHC.PC.OV ---
Vital Signs 10/18/24 10:19 Height 5 ft 11 in Weight 293 lb 6 oz BMI 40.9 BP 140/76 H Blood Pressure Location Lt brachial Position Sitting Pulse 80 Pulse Source Pulse Oximeter Temp 97.1 F Temp Source Temporal Artery Scan Pulse Oximetry (%) 97 Oxygen Delivery Method Room Air Intake Visit Reasons: having palpitations / possible labs Intake Note: Patient is here to follow up on Palpitation ongoing for 2-3 days and possible labs. 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: No Stockholder: Present Accompanied by: Spouse Allergies No Known Allergies (No Known Allergies*) Allergy (Verified 10/18/24 10:38) Medication List - Last Reconciled 10/18/24 by Gallito Davis PA-C bismuth subsalicylate 2 tabs PO QID 14 days doxycycline hyclate 100 mg PO BID 14 days metronidazole 1,000 mg (2 x 500 mg) PO BID olanzapine 5 - 10 mg PO BEDTIME omeprazole 20 mg PO BID 14 days Tobacco use date assessed: 10/18/24 Dental Screening Dental Screen Date: 04/12/24 HPI having palpitations / possible labs HPI Details The patient is a 39-year-old male presenting with palpitations and anxiety symptoms. The palpitations have been occurring almost daily, accompanied by chest pain and tingling sensations in the neck and shoulders. The patient reports a history of anxiety, exacerbated by recent life stressors including the of a and the departure of his therapist from practice. The patient also reports significant dysphagia, which has worsened over time, making it difficult to swallow even small pills. He has been diagnosed with Helicobacter pylori infection and prescribed a combination of antibiotics, magnesium, and omeprazole, which he finds challenging to ingest due to the size of the pills. The patient has attempted to manage this by crushing the pills and mixing them with applesauce, despite instructions not to crush them. The patient has a history of tingling and numbness in the left upper extremity, which has persisted since a previous surgical intervention on the biceps. He has not undergone nerve testing but expresses interest in ruling out any nerve entrapment issues. [facility] Medical History SALINAS (generalized anxiety disorder) MDD (major depressive disorder) Schizoaffective disorder PTSD (post-traumatic stress disorder) JACEY (obstructive sleep apnea) GERD (gastroesophageal reflux disease) Surgical History History of right knee surgery History of appendectomy Family History Father Hypertension Mother COPD (chronic obstructive pulmonary disease) Hypertension Asthma Vertigo Brother In good health Sister In good health Son In good health Daughter In good health Social History Housing: Apartment Alcohol intake: never Patient Tobacco Use Status: Former Tobacco user e-Cigarette/Vaping Use: Never Used Second Hand Smoke Exposure: Yes service: No Current occupational status: employed Current occupation: [employer] Cognitive needs: No Hearing needs: No Vision needs: No Questionnaire PHQ-9 Over the last 2 weeks, how often have you been bothered by any of the following problems? 1. Little interest or pleasure in doing things: several days 2. Feeling down, depressed, or hopeless: several days 3. Trouble falling or staying asleep, or sleeping too much: several days 4. Feeling tired or having little energy: nearly every day 5. Poor appetite or overeating: several days 6. Feeling bad about yourself - or that you are a failure or have let yourself or your family down: nearly every day 7. Trouble concentrating on things, such as reading the newspaper or watching television: nearly every day 8. Moving or speaking so slowly that other people could have noticed. Or the opposite - being so fidgety or restless that you have been moving around a lot more than usual: several days 9. Thoughts that you would be better off or of hurting yourself in some way: nearly every day Total score: 17 Depression Screening Interpretation: Positive Depression Screening Follow-up: Existing condition and Follow-up Visit Requested Depression Screening Done: Yes [id number] - PHQ-9 Billing: Yes Source: Developed by Drs. Eduard Guerra, Sari Moise, Samy Washington and colleagues, with an educational jac from [employer]. Thrive Questionnaire Date Thrive assessed: 10/18/24 I am a: Patient What is your living situation today?: I have a steady place to live Within the past 12 months, did the food you bought not last and you didn't have the money to get more?: Sometimes True Within the past 12 months, did you worry whether your food would run out before you got money to buy more?: Sometimes True Do you have trouble paying for medicines?: No Do you have trouble getting transportation to medical appointments?: No Do you have trouble paying your heating and electricity bill?: Yes Do you have trouble taking care of your child, family member or friend?: No Do you have trouble with day-to-day activities such as bathing, preparing meals, shopping, managing finances, etc.?: No Are you currently unemployed and looking for a job?: Yes Are you interested in more education?: No Please select the resources that you would like help with: None Currently or been in a relationship where the following occur: No concerns reported THRIVE Score: 3 AUDIT C Alcohol Use Questionnaire (AUDIT-C) 1. How often do you have a drink containing alcohol?: Never Total Score: 0 SALINAS-7 AMB Questionnaire SALINAS-7 Date SALINAS - 7 assessed: 10/18/24 Feeling nervous, anxious, or on edge: 3 = Nearly every day Not being able to stop or control worryin = Nearly every day Worrying too much about different things: 3 = Nearly every day Trouble relaxin = Nearly every day Being so restless that it is hard to sit still: 2 = More than half the days Becoming easily annoyed or irritable: 1 = Several days Feeling afraid as if something awful might happen: 3 = Nearly every day Total SALINAS-7 score (0-4 normal; 5-9 mild; 10-14 moderate; 15-21 severe): 18 Source: Developed by Drs. Eduard Guerra, Sari Moise, Samy Washington and colleagues, with an educational jac from [employer]. SALINAS-7 Assessment Billing SALINAS-7 Assessment Tool: SALINAS-7 Assessment 21201 Review of Systems Const Denies headache(s) Eyes Denies loss of vision ENT Denies vertigo, Denies dizziness, Denies headache(s) and Denies sore throat Card Denies chest pain, Denies leg edema and Denies lightheadedness Resp Denies cough, Denies hemoptysis and Denies wheezing GI Denies abdominal pain, Denies melena, Denies constipation, Denies diarrhea and Denies vomiting Denies dysuria, Denies urinary frequency and Denies urinary urgency Musc Denies arthralgias, Denies joint swelling, Denies numbness and Denies tingling Neuro Denies Abnormal speech present, Denies behavioral changes, Denies vertigo, Denies dizziness, Denies headache(s), Denies loss of vision, Denies memory loss, Denies numbness and Denies tingling Psych Reports anxiety, Denies behavioral changes, Denies depression, Reports irritability, Denies memory loss, Reports mood swings and Denies panic attacks Brent/Lymph Denies easy bleeding and Denies easy bruising Aller/Immun Denies wheezing Physical exam (Primary Care) Vital Signs: Last Vital Signs Temp 97.1 F 10/18/24 10:19 Pulse 80 10/18/24 10:19 BP 140/76 H 10/18/24 10:19 Pulse Ox 97 10/18/24 10:19 Oxygen Delivery Method Room Air 10/18/24 10:19 BMI result Body Mass Index 40.9 Tobacco/Smoking Status: Tobacco use Status Tobacco use date assessed 10/18/24 10/18/24 10:19 Patient Tobacco Use Status Former Tobacco user 10/18/24 10:16 e-Cigarette/Vaping Use Never Used 10/18/24 10:16 PHQ-9: PHQ-9 Score PHQ-9: Total score 17 10/18/24 10:19 Depression Screening Interpretation: Positive Depression Screening Follow-up: Existing condition and Follow-up Visit Requested Thrive Assessment: Date of Thrive Assessment Date Thrive assessed 10/18/24 10/18/24 10:19 Currently or been in a relationship where the following occur: No concerns reported Const General: healthy appearing, no acute distress, alert and awake Nutritional Appearance: well nourished Orientation/consciousness: oriented to person, oriented to place and oriented to time HENMT Ears: TM's normal bilaterally General nose exam: Normal nasal mucous membranes and turbinates present Eyes Conjunctivae: conjunctivae normal Sclerae: sclerae normal Pupils: Equal, round and reactive pupils present Neck Neck: Yes no lymphadenopathy and Yes no JVD Thyroid: Thyroid normal Carotids: no bruits Resp Effort & Inspection: normal respiratory effort and not tachypneic Auscultation: no crackles, no rales, no rhonchi and no wheezes Cardio Rate: regular rate Rhythm: regular rhythm Heart sounds: no murmurs and normal S1 and S2 GI Palpation (GI): Soft to palpation, nontender, no hepatomegaly and no splenomegaly Auscultation: normal bowel sounds Skin General skin exam: no rashes or lesions noted and dry skin Neuro General: oriented to person, oriented to place and oriented to time Cranial nerves: Yes Equal, round and reactive pupils present Speech: No Abnormal speech present Gait exam (Neuro): Normal gait present Motor exam (neuro): no tremor noted Extrem Right upper extremity: full ROM Left upper extremity: full ROM Right lower extremity: full ROM; no edema Left lower extremity: full ROM; no edema Psych Mental Status: mental status grossly normal Speech and movement: Normal speech and movement present Affect: normal affect Attitude: cooperative Thought process: Normal thought process present Coding Level of Care Code Est Pt Level 4 (39944) Diagnoses SALINAS (generalized anxiety disorder) F41.1 Gastroesophageal reflux disease without esophagitis K21.9 Esophagitis presence: without esophagitis H. pylori infection A04.8 Left hand paresthesia R20.2 Additional Codes SALINAS-7 Assessment Billing - SALINAS-7 Assessment Tool: SALINAS-7 Assessment 21654 ([id number]) PHQ-9 - 06983 - PHQ-9 Billing: Yes ([id number]) Assessment & Plan Assessment & Plan (1) SALINAS (generalized anxiety disorder): Code(s): F41.1 - Generalized anxiety disorder Category: Medical Plan: The patient will undergo laboratory tests and an EKG to rule out any physiological causes for his symptoms, although anxiety is suspected to be the primary issue. Consideration for restarting olanzapine and propranolol to manage anxiety and palpitations was discussed, with a plan to initiate these medications if lab results are unremarkable. (2) GERD (gastroesophageal reflux disease): Code(s): K21.9 - Gastro-esophageal reflux disease without esophagitis Category: Medical Qualifiers: Esophagitis presence: without esophagitis Qualified Code(s): K21.9 - Gastro-esophageal reflux disease without esophagitis Plan: The patient is advised to continue managing dysphagia by mixing medications with applesauce, despite the challenge of swallowing large pills. Further evaluation for potential esophageal issues may be considered if symptoms persist. (3) H. pylori infection: Code(s): A04.8 - Other specified bacterial intestinal infections Category: Medical Plan: Patient followed by gastroenterology in his on cocktail medications to help eradicate his H pylori. He is having trouble swallowing the pills thus he will try to crush and place an applesauce. (4) Left hand paresthesia: Code(s): R20.2 - Paresthesia of skin Category: Medical Plan: An EMG is planned to assess for any nerve entrapment or neuropathy in the left upper extremity. The patient is advised to avoid activities that may exacerbate symptoms until further evaluation is completed. Orders: Orders NE nerve conduction velocity Today R20.2 - Paresthesia of skin NE electromyogram (EMG) Today R20.2 - Paresthesia of skin Referrals Counseling Referral F41.1 - Generalized anxiety disorder Medications: New olanzapine 5 mg PO DAILY 30 tabs 0RF 30 days F41.1 - Generalized anxiety disorder propranolol ER 60 mg PO BEDTIME 30 caps 1RF 30 days F41.1 - Generalized anxiety disorder
[2024-10-18 10:19] VITALS: BP 140/76; PULSE 80; TEMP 36.2; O2SAT 97; BMI 40.9
--- OUTSIDE RECORDS SUMMARY | 2024-10-18 11:15 | XMS_ITS | Data Portability ---
Author Organization [place] - [facility], Allergy Address [address] [address] Care Team Providers Care Supervisor Gas Meter Repair Name Role Phone PADMINI SAMPSON Primary Care Provider [phone] Assessment Encounter Date Assessment Date Assessment LastModified by Organization Details LastModified Time 05/06/2024 05/06/2024 38-year-old male presents for evaluation of the ears and disequilibrium. Cerumen impaction removed from the left external auditory canal, and partially removed from the right. Otologic exam demonstrates TMs are intact with well-aerated middle ear spaces. Audiogram shows high-frequency sensorineural hearing loss bilaterally and normal tympanometry. Patient is not a candidate for hearing aids at this time. Although Eads-Hallpike was negative in the office, patient's symptoms are consistent with right sided benign paroxysmal positional vertigo. I will refer to vestibular therapy for management as he endorses the Dane maneuver resolved his symptoms in the past. We reviewed tinnitus triggers. Recommend follow-up in 6 months for reevaluation of unilateral tinnitus and vertigo. Will consider MRI of the IACs if symptoms persist or worsen. Recommend mineral oil 4 drops nightly for 7 days to soften remaining right cerumen. [email or web address] Not available 05/06/2024 17:46:52 Plan of Treatment Reminders Order Date Submit Date Provider Last Modified By Organization Details Last Modified Time Details Appointments Hearing Test 2024 02:30P M Hearing Test Not available Not available Not available Establish ed 15 2024 03:00P M DEANNE LOERA PA-C Not available Not available Not available Lab None recorded. Referral vestibula r therapy referral 2024 025 [facility] [place], [facility] [address], [place], [address], 05/10/2024 16:53:47 Procedures None recorded. Surgeries None recorded. Imaging None recorded. Medication Orders mineral oil 2024 025 [facility]acy #[id number], [phone] [place], [address], 05/06/2024 15:41:34 Patient TargetsNo targets recorded. Patient InstructionsNo instructions recorded. Reason for Referral Vestibular Therapy Referral for Benign paroxysmal positional vertigo Referring Physician: Deanne Loera, Otolaryngology, Encounter Date: 05/06/2024 Results Created Date Observation Date Name Description Value Unit Range Abnormal Flag Note LastModifiedBy Organization Detail LastModifiedTime 05/06/19 25 audio gram No observ ation record ed. BARCODE Not Available 2024 15:42:01 Result Notes None recorded. Problems Name Problem SNOMED Code Status Onset Date Resolution Date Notes Provider Name and Address Organization Details Recorded Time Sensorineur al hearing loss of bilateral ears 493230164 Active 2024 [place] [facility] 14:48:35 Benign paroxysmal positional vertigo 705921379 Active 2024 DEANNE LOERA PA-C [address] [place] [address], [place], [address], [facility] - [facility] 15:40:10 Impacted cerumen in right ear 2683916822963 103 Active 2024 DEANNE LOERA PA-C [address] [place] [address] E [facility], [place], [address], [place] - [facility] 15:40:17 Impacted cerumen in left ear 5969263965664 101 Active 2024 DEANNE LOERA PA-C [address] [facility] [address] [facility], [place], [address], [facility] - [facility] [place] 17:39:38 Tinnitus of right ear 2560175322257 Active 2024 DEANNE LOERA PA-C [address] [facility], [address], [place], [address], [facility] - [facility] 5 17:39:53 Problem Notes None recorded. Procedures Surgical History Date Name Laterality Status Provider Name and Address Organization Details Recorded Time Comp Audio with Tymps - 93954 & 91468 completed [place] - [facility] 05/06/2024 14:48:24 Cerumen removal without microscope bilat completed DEANNE LOERA PA-C [address] [facility] [address], [place], [address], [facility] - [facility] 05/06/2024 17:39:02 Imaging Results None recorded. Procedure Notes None recorded. Medical Equipment None Reported. Medications Name Sig Start Date Stop Date Status Note LastModified by Organization Details LastModified Time cyclobenzapri ne 10 mg tablet TAKE 1 TABLET BY MOUTH TWICE A DAY NEEDED FOR MUSCLE SPASM FOR 15 DAYS active Not Available Not Available No t Available prednisone 10 mg tablet TAKE 3 TABS X 3 DAYS , TAKE 2 TABS X 3 DAYS , TAKE 1 TAB X 3 DAYS DIRECTED active Not Available Not Available No t Available lorazepam 0.5 mg tablet TAKE 1 TABLET BY MOUTH 3 TIMES A DAY, NEEDED FOR ANXIETY active Not Available Not Available No t Available mineral oil 4 drops nightly into right ear for 7 nights, then as needed to soften ear wax 2024 active Not Available Not Available Not Avai lable meclizine 25 mg tablet 25 MG ORALLY 2 TIMES A DAY FOR DIZZINESS FOR 7 DAYS active Not Available Not Available N ot Available lidocaine 5 % topical patch APPLY 1 PATCH TOPICALLY DAILY. REMOVE PATCHES AFTER 12 HOURS active Not Available Not Available No t Available ondansetron 4 mg disintegratin g tablet TAKE 1 TABLET BY MOUTH EVERY 8 HOURS NEEDED FOR NAUSEA AND VOMITING active Not Available Not Available No t Available naproxen 500 mg tablet TAKE 1 TABLET BY MOUTH 2 TIMES A DAY NEEDED FOR PAIN , MODERATE active Not Available Not Available No t Available Vitals None Recorded Social History None recorded. Functional Status None recorded. Mental Status None recorded. Family History Nothing Reported. Medical History Condition Response Anxiety Y Past Encounters Encounter ID Performer Location Encounter Start Date Encounter Closed Date Diagnosis/Indication Diagnosis SNOMED-CT Code Diagnosis ICD10 Code Diagnosis Note [id number] DEANNE LOERA PA-C [facility] [address] [place] [address] 05/06/2024 14:10:20 05/06/2024 15:40:59 Sensorineural hearing loss of bilateral ears 719336611 H90.3 Audiologic al evaluation results:Ri ght ear:Normal through 6 kHz sloping to a moderate sensorineu ral hearing loss with excellent word recognitio n.Left ear:Normal through 4 kHz sloping to a moderate sensorineu ral hearing loss with excellent word recognitio n. Tympanomet ry:Right Ear:Type ALeft Ear:Type A Benign par oxysmal positional vertigo 847921611 H81.11 Impacted c erumen in right ear 6871025578 733953 H61.21 Impacted c erumen in left ear 6344529621 242569 H61.22 Tinnitus of right ear 48 07202453 108 H93.11 Today we discussed the pathophysi ology of tinnitus and the absence of consistent ly successful pharmacolo gic treatments for tinnitus. We discussed masking strategies to decrease awareness of the tinnitus, including using a white noise machine, music, or television . We discussed how exposure to loud noise can worsen tinnitus so I recommende d hearing protection . We also discussed other ways to potentiall y help reduce awareness of tinnitus including avoidance of caffeine, salty meals and NSAIDs. Health Concerns Section Related Observation LastModified by Organization Detai ls LastModified Time None Recorded Concern Status LastModified by Organization Details LastModified Time None Recorded Advance Directives Directive None Recorded Payers Insurance Date Sequence Insurance Name Policy Number Policy Sherman Covered Member ID Sherman Member ID Guarantor Name 07/12/2024 1 [facility] (MEDICAID REPLACEMENT - HMO) LADONNA Bello [id number] Supa Bello Notes Date Note Type Note Provider Name and Address Organization Details Recorded Time 05/06/2024 text/html 38-year-old male presents for evaluation of the ears. He reports intermittent disequilibrium episodes but started 6 weeks ago. He describes the sensation as lightheadedness and feeling drunk. The sensation is triggered by quick change in head position and rolling over in bed. He trialed the Dane maneuver and reports this resolved his disequilibrium. He also endorses right sided constant tinnitus for 3 weeks. Denies acute otalgia or otorrhea. Denies prior history of ear infections or ear surgeries. 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 Denies history of smoking. BLESSING JACOBS MD [address] [place] [address], [phone], [facility] - [facility] 05/09/2024 08:00:37
--- OUTSIDE RECORDS SUMMARY | 2024-10-18 11:15 | XMS_ITS | Clinical Summary ---
Author Organization [facility] Address [address] [place] [address] Phone Care Team Providers Care Oil Well Cable Tool Operator Name Role Phone Michael Wynne MD [...] series) 2004 Cholesterol Screening (Lipid Panel) 03/02/2022 HIV Screening 03/02/2022 Hepatitis C Screening 03/02/2022 Social Influencers of Health Screening 03/02/2022 COVID-19 Vaccine (1 - 2023-2 5 season) 2023 Depression Screening 03/30/2024 Influenza Vaccine (#1) 2024 02/04/2017 DTaP,Tdap,and Td [...] age to complete this topic Care Teams Oil Well Cable Tool Operator Relationship Specialty Start Date End Date Michael Wynne MD [address] [place] [address] Dr [address] QI Angela PCP - General Internal Medicine 09/26/16
== END 2024-10-18 12:50 | disposition home or self-care (01) ==
LOC: HO.HMCH 10:11
PROVIDERS: PCP Physician Assistant; Visit Provider Physician Assistant
DX: F41.1 Generalized anxiety disorder (principal); K21.9 Gastro-esophageal reflux disease without esophagitis; A04.8 Other specified bacterial intestinal infections; R20.2 Paresthesia of skin

== ENCOUNTER → 2024-10-18 11:20 | Outpatient (BNV) | payer OTHER, SELFPAY | PROVIDERS: PCP Physician Assistant; Visit Provider Internal Medicine Cardiovascular Disease | DX: R00.2 Palpitations (principal) | CPT/HCPCS: 93010 ==